=== PATIENT | male | born 1940 | race Caucasian/White ===

== ENCOUNTER 2021-01-06 21:08 | Emergency (ER) | payer MEDICARE ==
[2021-01-06] MEDS ORDERED: DUONEB 0.5-3 MG/3 ml Neb IH ONE ×2 (21:33→22:19)
[2021-01-06] MEDS ORDERED: Sodium Chloride 0.9% 1000 ML 1,000 ML IV SCH (21:45)
[2021-01-06] MEDS ORDERED: Sodium Chloride 0.9% 1000 ML 1,000 ML ONE (21:58)
--- NOTE | 2021-01-06 21:59 | ERPHSYRPT ---
- History of Present Illness Time Seen by Provider: 01/06/21 21:55 Source: patient, family Exam Limitations: no limitations Patient Subjective Stated Complaint: "I had a hard time breathing." Triage Nursing Assessment: Daughter reported that the patient took back to back breathing treatments at home and then started shaking. Daughter also reported that it felt as if his heart was beating too fast. Denied use of home oxygen. Denied recent injuries or sick contacts. This is a pleaslantly confused elderly male. Head atraumatic. pupils 4mm brisk direct and consensual reaction to light. Oral mucosa pink/moist. neck supple non-tender without JVD. No noted bruits/thrills. Symmetrical chest excursion. Heart tones regular/clear S1/S2 without extra sounds. Lung clear to auscultation without adventitious sounds. Peripheral pulses +2 bilateral. No noted dependent edema Physician History: "I had a hard time breathing." Daughter reported that the patient took back to back breathing treatments at home and then started shaking. Daughter also reported that it felt as if his heart was beating too fast. Denied use of home oxygen. Denied recent injuries or sick contacts. Timing/Duration: today Activities at Onset: none Severity of Dyspnea-Max: moderate Severity of Dyspnea-Current: mild Possible Cause: frequent episodes Modifying Factors: Improves With: nothing Associated Symptoms: weakness, No chest pain/discomfort, No fever Allergies/Adverse Reactions: KAYKAY Inhibitors Allergy (Intermediate, Verified 01/06/21 21:19) Home Medications: Amlodipine Besylate 1 tab PO DAILY 01/06/21 [History] Aspirin 81 gm Chew [Baby Aspirin 81 mg Chew] 1 tab PO DAILY 01/06/21 [History] Citalopram Hydrobromide [Citalopram HBr] 1 tab PO DAILY 01/06/21 [History] Citalopram Hydrobromide [Citalopram HBr] 1 tab PO DAILY 01/06/21 [History] Donepezil HCl 10 mg [Aricept 10 MG] 1 tab PO HS 01/06/21 [History] Finasteride 5 mg [Proscar 5 MG] 1 tab PO DAILY 01/06/21 [History] Gabapentin 1 cap PO TID 01/06/21 [History] Metformin HCl 500 mg [Glucophage 500 MG] 1 tab PO BID 01/06/21 [History] Simvastatin 1 tab PO HS 01/06/21 [History] Tamsulosin HCl 1 cap PO DAILY 01/06/21 [History] Tiotropium [place] Inhaler [Spiriva 18 Mcg/Cap Inhaler] 1 puff PO DAILY 01/06/21 [History] Hx Tetanus, Diphtheria Vaccination/Date Given: Yes Hx Influenza Vaccination/Date Given: Yes Travel Risk - International Travel Have you traveled outside of the country in past 3 weeks: No - Coronavirus Screening Are you exhibiting any of the following symptoms?: Yes Symptoms: Shortness of Breath Close contact with a COVID-19 positive Pt in past 14-21 Days: No - Review of Systems Constitutional: Chills, No Fever Eyes: No Symptoms Ears, Nose, & Throat: No Symptoms Respiratory: Dyspnea, Dyspnea on Exertion ([place]), Wheezing, No Cough Cardiac: No Chest Pain, No Edema, No Syncope Abdominal/Gastrointestinal: No Abdominal Pain, No Nausea, No Vomiting, No Diarrhea Genitourinary Symptoms: No Dysuria Musculoskeletal: No Back Pain, No Neck Pain Skin: No Rash Neurological: No Dizziness, No Focal Weakness, No Sensory Changes Psychological: No Symptoms Endocrine: No Symptoms All Other Systems: Reviewed and Negative - Past Medical History Pertinent Past Medical History: Yes Neurological History: Dementia ENT History: No Pertinent History Cardiac History: Aneurysm, Hypertension Respiratory History: COPD Endocrine Medical History: Diabetes Type II Musculoskeletal History: No Pertinent History GI Medical History: Hernia History: No Pertinent History Psycho-Social History: No Pertinent History Male Reproductive Disorders: Prostate Problems Other Medical History: Shingles, postherpetic neuralgia - Past Surgical History Past Surgical History: Yes Gastrointestinal: Hernia Repair - Social History Smoking Status: Former smoker Exposure to second hand smoke: No Drug Use: none Patient Lives Alone: No - Nursing Vital Signs Nursing Vital Signs: Initial Vital Signs Temperature 98 F 01/06/21 21:13 Pulse Rate 94 H 01/06/21 21:13 Respiratory Rate 24 01/06/21 21:13 Blood Pressure 115/58 01/06/21 21:13 O2 Sat by Pulse Oximetry 94 L 01/06/21 21:13 Pain Scale Pain Intensity 0 - Physical Exam General Appearance: no apparent distress, alert Eye Exam: PERRL/EOMI Neck Exam: normal inspection, supple Respiratory Exam: diminished breath sounds, wheezing Cardiovascular/Chest Exam: normal heart sounds, regular rate/rhythm Abdominal/Gastrointestinal Exam: soft, No tenderness, No distention, No mass Extremity Exam: non-tender, normal range of motion, normal inspection, no calf tenderness, no pedal edema Neurologic Exam: alert, oriented x 3, cooperative, el teacher II-XII nml as tested, sensation nml, No motor deficits Skin Exam: normal color, warm, No dry SpO2 Interpretation: borderline oxygenation SpO2: 94 O2 Delivery: Room Air - Course Nursing assessment & vital signs reviewed: Yes - Radiology Exams Chest X-ray Interpretation: Reviewed by me Ordered Tests: Active Orders 24 hr Category Date Time Status Councilperson STAT Care 01/06/21 21:34 Active EKG-ER Only STAT Care 01/06/21 21:33 Active Oxygen-ED Only Nasal Cannula 2 lpm Care 01/06/21 21:33 Active CHEST 1 VIEW (PORTABLE) Stat Exams 01/06/21 21:34 Taken CBC W DIFF Stat Lab 01/06/21 21:50 Completed CMP Stat Lab 01/06/21 21:50 Completed NT PRO BNP Stat Lab 01/06/21 21:50 Completed TROPONIN Stat Lab 01/06/21 21:50 Completed UA W/RFX UR CULTURE Stat Lab 01/06/21 21:33 Ordered Medication Summary Generic Name Dose Route Start Last Admin Trade Name Freq PRN Reason Stop Dose Admin Sodium Chloride 1,000 mls @ 50 mls/hr 01/06/21 21:45 01/06/21 22:03 Sodium Chloride 0.9% 1000 Ml IV 02/05/21 21:44 50 mls/hr .Q20H RAVEN Administration Ceftriaxone Sodium/Dextrose 1 g in 50 mls @ 100 mls/hr 01/06/21 22:19 Rocephin 1 Gm-D5w 50 Ml Bag IV 01/06/21 22:48 STAT STA Azithromycin 500 mg in 250 mls @ 250 mls/hr 01/06/21 22:19 Zithromax 500 Mg/ 250 Ml Nacl Premix IV 01/06/21 23:18 STAT STA Discontinued Medications Generic Name Dose Route Start Last Admin Trade Name Freq PRN Reason Stop Dose Admin Albuterol/Ipratropium 3 ml 01/06/21 21:33 01/06/21 22:23 Duoneb 0.5-3 Mg/3 Ml Neb IH 01/06/21 21:34 3 ml STAT ONE Administration Albuterol/Ipratropium Confirm 01/06/21 22:19 Duoneb 0.5-3 Mg/3 Ml Neb Administered 01/06/21 22:20 Dose 3 ml IH .STK-MED ONE Lab/Rad Data: Laboratory Result Diagrams 01/06/21 21:50 01/06/21 21:50 Laboratory Results 01/06/21 01/06/21 Range/Units 21:50 21:50 WBC 13.6 H (4.0-10.5) K/mm3 RBC 4.09 L (4.1-5.6) M/mm3 Hgb 11.4 L (12.5-18.0) gm/dl Hct 37.2 L (42-50) % MCV 91.0 (78-100) fl MCH 27.9 (26-32) pg MCHC 30.6 L (32-36) g/dl RDW 14.5 H (11.5-14.0) % Plt Count 229 (150-450) K/mm3 MPV 9.5 (7.5-11.0) fl Gran % 82.9 H (36.0-66.0) % Eos # (Auto) 0.04 (0-0.5) Absolute Lymphs (auto) 1.24 (1.0-4.6) Absolute Monos (auto) 1.02 (0.0-1.3) Lymphocytes % 9.1 L (24.0-44.0) % Monocytes % 7.5 (0.0-12.0) % Eosinophils % 0.3 (0.00-5.0) % Basophils % 0.2 (0.0-0.4) % Absolute Granulocytes 11.26 H (1.4-6.9) Basophils # 0.03 (0-0.4) Sodium 137 (137-145) mmol/L Potassium 4.4 (3.5-5.1) mmol/L Chloride 102 (98-107) mmol/L Carbon Dioxide 27 (22-30) mmol/L Anion Gap 13.2 (5-15) MEQ/L BUN 22 H (9-20) mg/dL Creatinine 1.37 H (0.66-1.25) mg/dL Estimated GFR 53.0 ML/MIN Glucose 257 H (74-106) mg/dL Calcium 9.5 (8.4-10.2) mg/dL Total Bilirubin 0.50 (0.2-1.3) mg/dL AST 20 (17-59) U/L ALT 15 (0-50) U/L Alkaline Phosphatase 87 (38-126) U/L Troponin I < 0.012 (0.000-0.034) ng/mL NT-Pro-B Natriuret Pep 228 (0-1800) pg/mL Serum Total Protein 7.2 (6.3-8.2) g/dL Albumin 3.9 (3.5-5.0) g/dL - Progress Progress: improved Air Movement: fair Blood Culture(s) Obtained: No Antibiotics given: Yes Counseled pt/family regarding: lab results, diagnosis, need for follow-up, rad results - Departure Departure Disposition: Home Clinical Impression: Pneumonia of right lower lobe due to group B Streptococcus Condition: Stable Critical Care Time: Yes Critical Care Time(excluding separately billable procedures): Critical 30-74 mins Instructions: Pneumonia, Adult (DC) Additional Instructions: Discharge/Care Plan STEPHEN BOO was seen on 01/06/21 in the Emergency Room. The patient was counseled regarding Diagnosis,Lab results, Imaging studies, need for follow up and when to return to the Emergency Room. Prescriptions given: Discharge Note I have spoken with the patient and/or caregivers. I have explained the patient's condition, diagnosis and treatment plan based on the information available to me at this time. I have answered the patient's and/or caregiver's questions and addressed any concerns. The patient and/or caregivers have as good understanding of the patient's diagnosis, condition and treatment plan as can be expected at this point. The vital signs have been stable. The patient's condition is stable and appropriate for discharge from the emergency department. The patient will pursue further outpatient evaluation with the primary care physician or other designated or consulting physician as outlined in the discharge instructions. The patient and/or caregivers are agreeable to this plan of care and follow-up instructions have been explained in detail. The patient and/or caregivers have received these instruction. The patient/and or caregivers are aware that any significant change in condition or worsening of symptoms should prompt an immediate return to this or the closest emergency department or call 911. STEPHEN BOO was seen on 01/06/21 n the Emergency Room. At that time you were treated for an emergent condition, during your visit Laboratory, Radiology and/or other procedures may have been ordered. It is very important that you follow-up with your Primary Care Physician NO FAMILY DOCTOR within the next 24- 48 hours to review your Emergency Room visit and the final results of testing that was ordered. Some test results such as Urine Cultures, Blood Cultures, and other cultures if ordered will not be finalized for 24-48 hours. If you do not have a Primary Care Provider please call the medical records department at [phone] ext [phone] to obtain a copy of your results or you may sign into our patient portal to obtain these results by visiting us @ [email or web address] and completing the following steps: 1. Click on the Patient Portal link 2. Click the Patient Self Enrollment Link to complete the enrollment form and entering your 3. Once the enrollment form is completed you will receive an email with a temporary ID and password at the email address you provided. 4. Next choose a user name and password. Your user name must be at least 4 characters long and your password must be at least 4 characters long. 5. Choose a security question from the list and provide your answer to the question. If you already have signed into the Health Portal you may access your Health Care Information 16/06 by the following steps: 1. Login to our website @ [email or web address] 2. Enter your original user name and password. FAQS The [facility] Health Portal is an online tool that contains your Lab Results, Radiology Reports, Visit History, Discharge Instructions and Health Summary Lab and Radiology Results will not be available for 72 hours on the portal. The Portal is a secure site, passwords are encryted and URLs are re-written so they cannot be copied and pasted. You and authorized family members are the only ones who can access your Portal. Also there is a timeout feature that protects your information if you leave the Portal page open. If you have technical difficulty please use the Contact Us link on the page this will allow you to submit any questions you have regarding the Portal or you may contact the Medical Record Department at [phone] ext [phone]. Prescriptions: Cephalexin Mh 500 mg [Keflex 500 mg] 500 mg PO Q6H #40 capsule
[2021-01-06 22:00] LABS: Absolute Neutrophil Ct (ANC) 11.26 (1.4-6.9); BASOPHIL % 0.2 % (0.0-0.4); Basophil (Absolute #) 0.03 (0-0.4); Eosinophil % 0.3 % (0.00-5.0); Eosinophil (Absolute #) 0.04 (0-0.5); Hematocrit 37.2 % (42-50); Hemoglobin 11.4 gm/dl (12.5-18.0); Lymphocyte (Absolute #) 1.24 (1.0-4.6); Lymphocytes % 9.1 % (24.0-44.0); Mean Corpuscular Hemoglobin 27.9 pg (26-32); Mean Corpuscular Hgb Concent. 30.6 g/dl (32-36); Mean Platelet Volume 9.5 fl (7.5-11.0); Monocyte (Absolute #) 1.02 (0.0-1.3); Monocytes % 7.5 % (0.0-12.0); Neutrophil % 82.9 % (36.0-66.0); Platelet Count 229 K/mm3 (150-450); Red Blood Count 4.09 M/mm3 (4.1-5.6); Red Cell Distribution Width 14.5 % (11.5-14.0); White Blood Count 13.6 K/mm3 (4.0-10.5)
[2021-01-06] MEDS ORDERED: ROCEPHIN 1 Gm-D5w 50 ml Bag** 1 G/50 ML IVPB IV STA (22:19)
[2021-01-06] MEDS ORDERED: Zithromax 500 MG/ 250 ML NaCl Premix 500 MG/250 ML IVPB IV STA (22:19)
[2021-01-06 22:23] LABS: ALBUMIN 3.9 g/dL (3.5-5.0); ALKALINE PHOSPHATASE 87 U/L (38-126); ANION GAP 13.2 MEQ/L (5-15); BLOOD UREA NITROGEN 22 mg/dL (9-20); CHLORIDE 102 mmol/L (98-107); Calcium 9.5 mg/dL (8.4-10.2); Carbon Dioxide 27 mmol/L (22-30); Creatinine 1 1.37 mg/dL (0.66-1.25); Glucose 257 mg/dL (74-106); NT PRO BNP 228 pg/mL (0-1800); Potassium 4.4 mmol/L (3.5-5.1); SGOT/AST 20 U/L (17-59); SGPT/ALT 15 U/L (0-50); SODIUM 137 mmol/L (137-145); TROPONIN < 0.012 ng/mL (0.000-0.034); Total Protein 7.2 g/dL (6.3-8.2)
[2021-01-06] MEDS ORDERED: ROCEPHIN 1 Gm-D5w 50 ml Bag** 1 G/50 ML IVPB IV ONE (22:26)
[2021-01-06] MEDS ORDERED: Zithromax 500 MG/ 250 ML NaCl Premix 500 MG/250 ML IVPB IV ONE (22:54)
[2021-01-06 23:14] VITALS: BP 117/56
[2021-01-07 00:09] VITALS: PULSE 87; O2SAT 92
[2021-01-07 00:30] LABS: Appearance SLIGHTLY CLOUDY (CLEAR); Bilirubin NEGATIVE (NEGATIVE); Blood NEGATIVE Ery/ul (0-5); Glucose NEGATIVE (NEGATIVE); Ketones NEGATIVE (NEGATIVE); Leukocyte Esterase NEGATIVE (NEGATIVE); Mucus SLIGHT /HPF (NEGATIVE); Nitrite NEGATIVE (NEGATIVE); Protein,Urine Dip NEGATIVE (Negative); Specific Gravity 1.023 (1.005-1.025); Urobilinogen 2 mg/dL (0-1)
--- NOTE | 2021-01-07 08:03 | XRAY ---
Indication: Short of breath. Comparison: None Portable chest does not include left costophrenic angle. Lungs hyperinflated with minimal scattered fibrosis/scarring, left base discoid atelectasis, and tiny right base calcified granuloma. No focal infiltrate, consolidation, or large effusion. Heart and mediastinal structures within normal limits. Bony thorax intact with mild osteopenia and degenerative changes. Impression: Nonacute limited chest with chronic features.
== END 2021-01-07 00:16 | disposition home or self-care (01) ==
LOC: ED 21:08
DX: R06.02 Shortness of breath (principal); J15.3 Pneumonia due to streptococcus, group B; R06.00 Dyspnea, unspecified; R06.2 Wheezing; R53.1 Weakness; I10 Essential (primary) hypertension; E11.9 Type 2 diabetes mellitus without complications; Z79.899 Other long term (current) drug therapy
CPT/HCPCS: 36415; 71045; 80053; 81001; 83880; 84484; 85025; 93005; 93041; 94150; 94640; 96365; 96366; 96367; 99284; 99291; J0456; J0696; A9270-GY

== ENCOUNTER 2021-07-12 20:00 | Inpatient (IN) | payer MEDICARE ==
[2021-07-12] MEDS ORDERED: DUONEB 0.5-3 MG/3 ml Neb IH ONE (21:56)
[2021-07-13] MEDS ORDERED: Sodium Chloride 0.9% 10 ML FLUSH Syringe IV PRN (01:00)
[2021-07-13] MEDS ORDERED: ROCEPHIN 1 Gm-D5w 50 ml Bag** 1 G/50 ML IVPB IV ONE (03:00)
[2021-07-13] MEDS ORDERED: DUONEB 0.5-3 MG/3 ml Neb IH PRN (03:00)
[2021-07-13] MEDS ORDERED: solu-MEDROL 125 MG, Sterile H2O 10 ml 2 ML IV ONE ×2 (03:00)
[2021-07-13] MEDS ORDERED: solu-MEDROL ONE (03:04)
[2021-07-13] MEDS ORDERED: Spiriva 18 Mcg/Cap Inhaler IH ONE (03:33)
[2021-07-13] MEDS ORDERED: TYLENOL 325 MG PO PRN (05:13)
[2021-07-13] MEDS ORDERED: DUONEB 0.5-3 MG/3 ml Neb IH ONE (06:44)
[2021-07-13 07:18] LABS: BLOOD UREA NITROGEN 15 mg/dL (9-20); CHLORIDE 103 mmol/L (98-107); Carbon Dioxide 29 mmol/L (22-30); Creatinine 1 0.98 mg/dL (0.66-1.25); EST GLOMERULAR FILTRATION RATE > 60.0 ML/MIN; Glucose 164 mg/dL (74-106); Hematocrit 37.7 % (42-50); Hemoglobin 11.9 gm/dl (12.5-18.0); Mean Cell Volume 89.8 fl (78-100); Mean Corpuscular Hemoglobin 28.3 pg (26-32); Mean Corpuscular Hgb Concent. 31.6 g/dl (32-36); Mean Platelet Volume 10.4 fl (7.5-11.0); Platelet Count 230 K/mm3 (150-450); Potassium 5.1 mmol/L (3.5-5.1); Red Cell Distribution Width 13.8 % (11.5-14.0); SODIUM 137 mmol/L (137-145); White Blood Count 11.8 K/mm3 (4.0-10.5)
[2021-07-13 07:19] LABS: ALBUMIN 3.7 g/dL (3.5-5.0); ALKALINE PHOSPHATASE 74 U/L (38-126); Calcium 9.4 mg/dL (8.4-10.2); MAGNESIUM 1.8 mg/dL (1.6-2.3); NT PRO BNP 374 pg/mL (0-1800); SGOT/AST 31 U/L (17-59); SGPT/ALT 12 U/L (0-50); TROPONIN 0.017 ng/mL (0.000-0.034)
[2021-07-13 07:20] LABS: ANION GAP 10.1 MEQ/L (5-15)
[2021-07-13] MEDS: Sodium Chloride 0.9% 10 ML FLUSH Syringe IV SCH ×3 (09:34→23:47)
[2021-07-13] MEDS ORDERED: PROVENTIL 2.5 MG/3 ML NEB IH PRN (09:52)
--- NOTE | 2021-07-13 09:57 | XRAY ---
Indication: Weakness and fatigue. COPD. Comparison: January 06, 2021. Portable chest again demonstrates COPD, CIPD, minimal left base fibrosis/scarring, and a few calcified granulomas. No focal infiltrate, consolidation, or large effusion. Heart not enlarged. Bony thorax intact again with mild osteopenia and degenerative changes. Impression: Continued nonacute chest with chronic features.
[2021-07-13] MEDS ORDERED: solu-MEDROL 40 MG IV SCH (10:00)
[2021-07-13] MEDS ORDERED: Spiriva 18 Mcg/Cap Inhaler IH SCH (10:00)
[2021-07-13] MEDS ORDERED: MOTRIN 200 MG PO PRN (10:18)
[2021-07-13] MEDS ORDERED: Sterile H2O 10 ml IJ ONE (10:45)
[2021-07-13] MEDS: Flomax 0.4 MG PO SCH (10:52)
[2021-07-13] MEDS: ceLEXa 20 MG PO SCH (10:52)
[2021-07-13] MEDS: Glucophage 500 MG PO SCH ×2 (10:52→17:33)
[2021-07-13] MEDS: NEURONTIN 300 MG PO SCH ×3 (10:52→23:46)
[2021-07-13] MEDS: VITAMIN D PO SCH (10:52)
[2021-07-13] MEDS: ECOTRIN 81 MG PO SCH (10:52)
[2021-07-13] MEDS: NORVASC 5 MG PO SCH (10:52)
[2021-07-13] MEDS: HUMULIN R SQ PRN ×3 (10:53→17:30)
[2021-07-13] MEDS: Zithromax 500 MG/ 250 ML NaCl Premix 500 MG/250 ML IVPB IV SCH (10:53)
--- NOTE | 2021-07-13 11:33 | XRAY ---
Indication: Weakness. COPD exacerbation. Multiple contiguous axial images obtained through the head without contrast. Comparison: None Age-appropriate global atrophy and moderate periventricular degenerative micro-ischemia bilaterally. No acute intracranial hemorrhage, abnormal extra-axial fluid collection, or mass effect. Fourth ventricle is midline without hydrocephalus. Bony calvarium intact. Visualized paranasal sinuses and mastoid air cells are clear. Impression: Nonacute senile brain.
[2021-07-13] MEDS: Proscar 5 MG PO SCH (12:32)
[2021-07-13] MEDS: DUONEB 0.5-3 MG/3 ml Neb IH SCH ×3 (13:41→23:18)
[2021-07-13] MEDS: solu-MEDROL 60 MG, Sterile H2O 10 ml 2 ML IV SCH ×4 (17:31→23:45)
[2021-07-13] MEDS ORDERED: SODIUM CHLORIDE 0.9% IV SCH (22:00)
[2021-07-13] MEDS ORDERED: ROCEPHIN IV SCH (22:00)
[2021-07-13] MEDS ORDERED: NON-FORMULARY ITEM (Simvastatin [Simvastatin] 5 MG) PO SCH (22:00)
[2021-07-13] MEDS: ROCEPHIN 1 Gm-D5w 50 ml Bag** 1 G/50 ML IVPB IV SCH (23:45)
[2021-07-13] MEDS: Zocor 10MG PO SCH (23:46)
[2021-07-13] MEDS: Aricept 10 MG PO SCH (23:47)
[2021-07-13] MEDS: Lantus Insulin SQ SCH (23:47)
[2021-07-14 03:59] LABS: Appearance CLOUDY (CLEAR); Bacteria RARE /HPF (NEGATIVE); Bilirubin NEGATIVE (NEGATIVE); Blood LARGE Ery/ul (0-5); Epithelial Cells FEW /HPF (FEW); Glucose >=500 mg/dL (NEGATIVE); Ketones TRACE (NEGATIVE); Leukocyte Esterase NEGATIVE (NEGATIVE); Mucus SLIGHT /HPF (NEGATIVE); Nitrite NEGATIVE (NEGATIVE); Protein,Urine Dip 100 (Negative); Specific Gravity 1.013 (1.005-1.025); Urobilinogen NEGATIVE mg/dL (0-1)
[2021-07-14 04:00] LABS: RBC >101 /HPF (0-2)
[2021-07-14] MEDS: solu-MEDROL 60 MG, Sterile H2O 10 ml 2 ML IV SCH ×4 (05:32→11:34)
[2021-07-14] MEDS: Sodium Chloride 0.9% 10 ML FLUSH Syringe IV SCH ×2 (05:33→14:36)
[2021-07-14 06:07] LABS: Hematocrit 34.5 % (42-50); Hemoglobin 11.4 gm/dl (12.5-18.0); Mean Cell Volume 88.5 fl (78-100); Mean Corpuscular Hemoglobin 29.2 pg (26-32); Platelet Count 231 K/mm3 (150-450); Red Cell Distribution Width 14.1 % (11.5-14.0); White Blood Count 20.3 K/mm3 (4.0-10.5)
[2021-07-14 06:26] LABS: ANION GAP 14.2 MEQ/L (5-15); Calcium 9.5 mg/dL (8.4-10.2); Creatinine 1 1.34 mg/dL (0.66-1.25); EST GLOMERULAR FILTRATION RATE 54.4 ML/MIN; Potassium 4.8 mmol/L (3.5-5.1)
[2021-07-14] MEDS: DUONEB 0.5-3 MG/3 ml Neb IH SCH ×3 (06:55→19:45)
--- NOTE | 2021-07-14 07:43 | XRAY ---
Indication: COPD exacerbation. Comparison: July 12, 2021. Portable chest unchanged again demonstrating COPD, chronic lung markings, minimal left base fibrosis/scarring, and a few tiny calcified granulomas. Heart not enlarged. No new/acute abnormalities.
[2021-07-14] MEDS: Glucophage 500 MG PO SCH ×2 (09:02→17:38)
[2021-07-14] MEDS: HUMULIN R SQ PRN (09:08)
[2021-07-14] MEDS ORDERED: Flomax 0.4 MG PO SCH (10:00)
[2021-07-14] MEDS ORDERED: NON-FORMULARY ITEM (Cholecalciferol (Vitamin D3) [Vitamin D3] 1,000 UNIT) PO SCH (10:00)
[2021-07-14] MEDS ORDERED: BABY ASPIRIN 81 MG CHEW PO SCH (10:00)
[2021-07-14] MEDS ORDERED: AMLODIPINE BESYLATE PO SCH (10:00)
[2021-07-14] MEDS ORDERED: NON-FORMULARY ITEM (Citalopram Hydrobromide [Celexa] 10 MG) PO SCH (10:00)
[2021-07-14] MEDS ORDERED: Haldol 5 MG IV PRN (11:30)
[2021-07-14] MEDS: ceLEXa 20 MG PO SCH (11:33)
[2021-07-14] MEDS: Flomax 0.4 MG PO SCH (11:33)
[2021-07-14] MEDS: VITAMIN D PO SCH (11:33)
[2021-07-14] MEDS: ECOTRIN 81 MG PO SCH (11:33)
[2021-07-14] MEDS: NEURONTIN 300 MG PO SCH ×3 (11:34→19:59)
[2021-07-14] MEDS: NORVASC 5 MG PO SCH (11:34)
[2021-07-14] MEDS ORDERED: HALDOL 1 MG PO PRN (11:34)
[2021-07-14] MEDS: Zithromax 500 MG/ 250 ML NaCl Premix 500 MG/250 ML IVPB IV SCH (11:34)
[2021-07-14] MEDS: Proscar 5 MG PO SCH (11:35)
[2021-07-14] MEDS ORDERED: HUMALOG IV ONE (12:30)
[2021-07-14] MEDS ORDERED: Lantus Insulin SQ ONE (12:32)
[2021-07-14] MEDS: solu-MEDROL 40 MG IV SCH ×2 (14:35→19:59)
[2021-07-14] MEDS ORDERED: solu-MEDROL 40 MG, Sterile H2O 10 ml 2 ML IV SCH ×2 (15:00)
[2021-07-14] MEDS: HUMALOG SQ PRN ×3 (15:15→19:57)
[2021-07-14] MEDS: Zocor 10MG PO SCH (19:58)
[2021-07-14] MEDS: ROCEPHIN 1 Gm-D5w 50 ml Bag** 1 G/50 ML IVPB IV SCH (19:58)
[2021-07-14] MEDS: Aricept 10 MG PO SCH (19:59)
[2021-07-14] MEDS: Lantus Insulin SQ SCH (19:59)
[2021-07-14] MEDS ORDERED: D50W 50 ml Abboject IV ONE (23:18)
[2021-07-14] MEDS ORDERED: D50W 50ML Vial IV ONE (23:21)
[2021-07-15] MEDS: DUONEB 0.5-3 MG/3 ml Neb IH SCH ×4 (01:08→19:04)
[2021-07-15] MEDS ORDERED: Sterile H2O 10 ml IJ ONE (05:44)
[2021-07-15] MEDS: solu-MEDROL 40 MG IV SCH (05:46)
[2021-07-15 06:07] LABS: Hematocrit 34.8 % (42-50); Mean Cell Volume 90.4 fl (78-100); Mean Corpuscular Hemoglobin 28.6 pg (26-32); Mean Corpuscular Hgb Concent. 31.6 g/dl (32-36); Mean Platelet Volume 10.2 fl (7.5-11.0); Platelet Count 226 K/mm3 (150-450); Red Blood Count 3.85 M/mm3 (4.1-5.6); Red Cell Distribution Width 14.3 % (11.5-14.0); White Blood Count 21.4 K/mm3 (4.0-10.5)
[2021-07-15 06:22] LABS: ALBUMIN 3.3 g/dL (3.5-5.0); ANION GAP 13.2 MEQ/L (5-15); BILIRUBIN,TOTAL 0.3 mg/dL (0.2-1.3); Calcium 9.3 mg/dL (8.4-10.2); Creatinine 1 1.28 mg/dL (0.66-1.25); EST GLOMERULAR FILTRATION RATE 57.3 ML/MIN; Potassium 4.6 mmol/L (3.5-5.1); Total Protein 6.2 g/dL (6.3-8.2)
[2021-07-15] MEDS: Glucophage 500 MG PO SCH ×2 (07:37→16:01)
[2021-07-15] MEDS: HUMALOG SQ PRN ×2 (08:38→13:36)
[2021-07-15] MEDS: ceLEXa 20 MG PO SCH (09:11)
[2021-07-15] MEDS: ECOTRIN 81 MG PO SCH (09:13)
[2021-07-15] MEDS: NEURONTIN 300 MG PO SCH ×3 (09:13→21:36)
[2021-07-15] MEDS: Flomax 0.4 MG PO SCH (09:13)
[2021-07-15] MEDS: VITAMIN D PO SCH (09:15)
[2021-07-15] MEDS: NORVASC 5 MG PO SCH (09:15)
[2021-07-15] MEDS: Proscar 5 MG PO SCH (09:15)
[2021-07-15] MEDS: Zithromax 500 MG/ 250 ML NaCl Premix 500 MG/250 ML IVPB IV SCH (09:16)
[2021-07-15] MEDS ORDERED: HALDOL 1 MG PO ONE (09:29)
[2021-07-15] MEDS ORDERED: HUMALOG SQ PRN (09:34)
[2021-07-15 10:16] LABS: Lymphocytes 4 % (24-44); Neutrophils 96 % (36.-66.); Platelet Estimate NORMAL (NORMAL); Total Cells Counted 100; Toxic Granulation 2+
[2021-07-15] MEDS: DELTASONE 10 MG PO SCH (10:20)
[2021-07-15] MEDS: Sodium Chloride 0.9% 10 ML FLUSH Syringe IV SCH ×2 (14:46→21:35)
[2021-07-15] MEDS: Aricept 10 MG PO SCH (21:35)
[2021-07-15] MEDS: Zocor 10MG PO SCH (21:35)
[2021-07-15] MEDS: ROCEPHIN 1 Gm-D5w 50 ml Bag** 1 G/50 ML IVPB IV SCH (21:35)
[2021-07-16] MEDS: DUONEB 0.5-3 MG/3 ml Neb IH SCH ×4 (00:32→19:17)
[2021-07-16 05:28] LABS: Hematocrit 32.6 % (42-50); Hemoglobin 10.3 gm/dl (12.5-18.0); Mean Cell Volume 90.6 fl (78-100); Mean Corpuscular Hemoglobin 28.6 pg (26-32); Mean Corpuscular Hgb Concent. 31.6 g/dl (32-36); Mean Platelet Volume 9.9 fl (7.5-11.0); Platelet Count 226 K/mm3 (150-450); Red Cell Distribution Width 14.3 % (11.5-14.0)
[2021-07-16 05:55] LABS: ALBUMIN 3.1 g/dL (3.5-5.0); ALKALINE PHOSPHATASE 61 U/L (38-126); ANION GAP 11.4 MEQ/L (5-15); BLOOD UREA NITROGEN 37 mg/dL (9-20); CHLORIDE 104 mmol/L (98-107); Carbon Dioxide 26 mmol/L (22-30); Creatinine 1 1.14 mg/dL (0.66-1.25); EST GLOMERULAR FILTRATION RATE > 60.0 ML/MIN; Glucose 134 mg/dL (74-106); PROCALCITONIN 0.088 ng/mL (0.030-0.080); Potassium 4.2 mmol/L (3.5-5.1); SGOT/AST 27 U/L (17-59); SGPT/ALT 17 U/L (0-50); SODIUM 137 mmol/L (137-145); Total Protein 5.9 g/dL (6.3-8.2)
[2021-07-16 07:19] LABS: Lymphocytes 12 % (24-44); Neutrophils 88 % (36.-66.); Platelet Estimate NORMAL (NORMAL); Total Cells Counted 100; Toxic Granulation 2+
[2021-07-16] MEDS: ECOTRIN 81 MG PO SCH (09:10)
[2021-07-16] MEDS: VITAMIN D PO SCH (09:10)
[2021-07-16] MEDS: DELTASONE 10 MG PO SCH (09:10)
[2021-07-16] MEDS: ceLEXa 20 MG PO SCH (09:10)
[2021-07-16] MEDS: Flomax 0.4 MG PO SCH (09:10)
[2021-07-16] MEDS: Glucophage 500 MG PO SCH ×2 (09:10→16:40)
[2021-07-16] MEDS: Sodium Chloride 0.9% 10 ML FLUSH Syringe IV SCH ×3 (09:11→23:01)
[2021-07-16] MEDS: Zithromax 500 MG/ 250 ML NaCl Premix 500 MG/250 ML IVPB IV SCH (09:11)
[2021-07-16] MEDS: NEURONTIN 300 MG PO SCH ×3 (09:11→23:00)
[2021-07-16] MEDS: Proscar 5 MG PO SCH (09:11)
[2021-07-16] MEDS: NORVASC 5 MG PO SCH (09:11)
[2021-07-16] MEDS: HUMALOG SQ PRN (18:14)
[2021-07-16] MEDS: Zocor 10MG PO SCH (23:00)
[2021-07-16] MEDS: Aricept 10 MG PO SCH (23:00)
[2021-07-16] MEDS: ROCEPHIN 1 Gm-D5w 50 ml Bag** 1 G/50 ML IVPB IV SCH (23:15)
[2021-07-17] MEDS: DUONEB 0.5-3 MG/3 ml Neb IH SCH ×4 (01:15→19:18)
[2021-07-17 05:20] LABS: Hemoglobin 11.1 gm/dl (12.5-18.0); Mean Corpuscular Hemoglobin 28.5 pg (26-32); Mean Corpuscular Hgb Concent. 31.7 g/dl (32-36); Mean Platelet Volume 9.7 fl (7.5-11.0); Platelet Count 219 K/mm3 (150-450); Red Blood Count 3.89 M/mm3 (4.1-5.6); Red Cell Distribution Width 13.9 % (11.5-14.0); White Blood Count 10.3 K/mm3 (4.0-10.5)
[2021-07-17 06:19] LABS: ANION GAP 11.3 MEQ/L (5-15); BLOOD UREA NITROGEN 25 mg/dL (9-20); CHLORIDE 103 mmol/L (98-107); Calcium 9.1 mg/dL (8.4-10.2); Carbon Dioxide 29 mmol/L (22-30); Creatinine 1 1.01 mg/dL (0.66-1.25); EST GLOMERULAR FILTRATION RATE > 60.0 ML/MIN; Glucose 148 mg/dL (74-106); SODIUM 139 mmol/L (137-145)
[2021-07-17] MEDS: Sodium Chloride 0.9% 10 ML FLUSH Syringe IV SCH ×4 (08:56→22:31)
[2021-07-17] MEDS: Glucophage 500 MG PO SCH ×2 (08:57→17:12)
--- NOTE | 2021-07-17 09:06 | XRAY ---
Indication: Pneumonia. Comparison: July 14, 2021. Portable chest does not include right costophrenic angle. Grossly stable COPD, left base fibrosis/scarring, and a few scattered calcified granulomas. Heart not enlarged. No new/acute abnormalities.
[2021-07-17] MEDS: NORVASC 5 MG PO SCH (11:33)
[2021-07-17] MEDS: Flomax 0.4 MG PO SCH (11:34)
[2021-07-17] MEDS: ECOTRIN 81 MG PO SCH (11:34)
[2021-07-17] MEDS: VITAMIN D PO SCH (11:34)
[2021-07-17] MEDS: ceLEXa 20 MG PO SCH (11:34)
[2021-07-17] MEDS: DELTASONE 10 MG PO SCH (11:35)
[2021-07-17] MEDS: NEURONTIN 300 MG PO SCH ×3 (11:35→21:06)
[2021-07-17] MEDS: Proscar 5 MG PO SCH (11:36)
--- NOTE | 2021-07-17 11:51 | XRAY ---
Indication: Dysphasia. Modified barium swallow study performed by the Department of speech therapy with fluoroscopic assistance provided. Patient ingested multiple consistencies of liquids and solids. Full report and recommendations will be reported separately. Approximately 2 minutes 47 seconds fluoroscopy used.
[2021-07-17] MEDS: Zithromax 500 MG/ 250 ML NaCl Premix 500 MG/250 ML IVPB IV SCH (11:54)
[2021-07-17] MEDS: HUMALOG SQ PRN ×2 (12:25→21:29)
[2021-07-17] MEDS: Zocor 10MG PO SCH (21:06)
[2021-07-17] MEDS: Aricept 10 MG PO SCH (21:06)
[2021-07-17] MEDS: ROCEPHIN 1 Gm-D5w 50 ml Bag** 1 G/50 ML IVPB IV SCH (21:06)
[2021-07-18] MEDS: DUONEB 0.5-3 MG/3 ml Neb IH SCH ×4 (02:00→17:48)
[2021-07-18] MEDS: Flomax 0.4 MG PO SCH (09:28)
[2021-07-18] MEDS: ECOTRIN 81 MG PO SCH (09:28)
[2021-07-18] MEDS: ceLEXa 20 MG PO SCH (09:28)
[2021-07-18] MEDS: VITAMIN D PO SCH (09:28)
[2021-07-18] MEDS: Glucophage 500 MG PO SCH ×2 (09:28→17:29)
[2021-07-18] MEDS: NORVASC 5 MG PO SCH (09:28)
[2021-07-18] MEDS: NEURONTIN 300 MG PO SCH ×3 (09:28→21:31)
[2021-07-18] MEDS: Proscar 5 MG PO SCH (09:29)
[2021-07-18] MEDS: Zithromax 500 MG/ 250 ML NaCl Premix 500 MG/250 ML IVPB IV SCH (09:29)
[2021-07-18] MEDS: DELTASONE 10 MG PO SCH (09:29)
[2021-07-18] MEDS: Sodium Chloride 0.9% 10 ML FLUSH Syringe IV SCH ×3 (09:30→21:31)
[2021-07-18] MEDS: HUMALOG SQ PRN ×3 (12:29→21:32)
[2021-07-18] MEDS: ROCEPHIN 1 Gm-D5w 50 ml Bag** 1 G/50 ML IVPB IV SCH (21:31)
[2021-07-18] MEDS: Aricept 10 MG PO SCH (21:31)
[2021-07-18] MEDS: Zocor 10MG PO SCH (21:32)
[2021-07-19] MEDS: DUONEB 0.5-3 MG/3 ml Neb IH SCH ×3 (01:17→12:38)
[2021-07-19 04:51] LABS: Hematocrit 35.7 % (42-50); Hemoglobin 11.3 gm/dl (12.5-18.0); Mean Cell Volume 91.3 fl (78-100); Mean Corpuscular Hemoglobin 28.9 pg (26-32); Mean Corpuscular Hgb Concent. 31.7 g/dl (32-36); Mean Platelet Volume 9.7 fl (7.5-11.0); Platelet Count 218 K/mm3 (150-450); Red Blood Count 3.91 M/mm3 (4.1-5.6); Red Cell Distribution Width 14.1 % (11.5-14.0); White Blood Count 11.4 K/mm3 (4.0-10.5)
[2021-07-19 05:16] LABS: BLOOD UREA NITROGEN 24 mg/dL (9-20); CHLORIDE 104 mmol/L (98-107); Calcium 9.1 mg/dL (8.4-10.2); Carbon Dioxide 30 mmol/L (22-30); Creatinine 1 1.13 mg/dL (0.66-1.25); EST GLOMERULAR FILTRATION RATE > 60.0 ML/MIN; Glucose 165 mg/dL (74-106); SODIUM 139 mmol/L (137-145)
[2021-07-19] MEDS: HUMALOG SQ PRN ×2 (07:37→11:47)
[2021-07-19] MEDS: Glucophage 500 MG PO SCH (07:40)
--- NOTE | 2021-07-19 08:32 | XRAY ---
Indication: Pneumonia. Comparison: July 17, 2021. Portable chest unchanged again demonstrating COPD, left base fibrosis/scarring, and a few tiny calcified granulomas. Heart not enlarged. No new/acute cardiopulmonary abnormalities.
[2021-07-19] MEDS: VITAMIN D PO SCH (09:31)
[2021-07-19] MEDS: NEURONTIN 300 MG PO SCH (09:31)
[2021-07-19] MEDS: ceLEXa 20 MG PO SCH (09:31)
[2021-07-19] MEDS: Flomax 0.4 MG PO SCH (09:31)
[2021-07-19] MEDS: NORVASC 5 MG PO SCH (09:31)
[2021-07-19] MEDS: DELTASONE 10 MG PO SCH (09:32)
[2021-07-19] MEDS: Proscar 5 MG PO SCH (09:32)
[2021-07-19] MEDS: ECOTRIN 81 MG PO SCH (09:32)
[2021-07-19 12:08] VITALS: BP 109/55
[2021-07-19 12:42] VITALS: PULSE 81; O2SAT 94
== END 2021-07-19 13:00 | disposition home health service (06) | DRG 192 ==
LOC: ED 20:00 → MED SURG 07-13 02:35 → OBSVTOIN 07-14 09:51
PROVIDERS: ADMIT Family Medicine; ATTEND Family Medicine
DX: J44.1 Chronic obstructive pulmonary disease with (acute) exacerbation (principal); R29.6 Repeated falls; Z20.822 Contact with and (suspected) exposure to COVID-19; R53.1 Weakness; E11.9 Type 2 diabetes mellitus without complications; Z79.899 Other long term (current) drug therapy
CPT/HCPCS: 36415; 70450; 71045; 74230; 80048; 80053; 81001; 82947; 83036; 83735; 83880; 84145; 84484; 85025; 85027; 87086; 92611; 94640; 94760; 97110; 97161; 97530; 99285; G0378; U0003; J0456; J0696; J1630; J1815; J1817; J2920; J2930; A9270-GY

== ENCOUNTER 2021-10-04 18:19 | Emergency (ER) | payer MEDICARE ==
[2021-10-04 19:04] LABS: Absolute Neutrophil Ct (ANC) 5.19 (1.4-6.9); BASOPHIL % 0.3 % (0.0-0.4); Basophil (Absolute #) 0.03 (0-0.4); Eosinophil (Absolute #) 0.45 (0-0.5); Hematocrit 38.3 % (42-50); Hemoglobin 11.8 gm/dl (12.5-18.0); Lymphocyte (Absolute #) 2.38 (1.0-4.6); Lymphocytes % 26.6 % (24.0-44.0); Mean Cell Volume 93.6 fl (78-100); Mean Corpuscular Hemoglobin 28.9 pg (26-32); Mean Corpuscular Hgb Concent. 30.8 g/dl (32-36); Mean Platelet Volume 10.1 fl (7.5-11.0); Monocytes % 10.1 % (0.0-12.0); Platelet Count 232 K/mm3 (150-450); Red Blood Count 4.09 M/mm3 (4.1-5.6); Red Cell Distribution Width 14.5 % (11.5-14.0)
--- NOTE | 2021-10-04 19:10 | ERPHSYRPT ---
- History of Present Illness Time Seen by Provider: 10/04/21 18:25 Source: patient, family, EMS Exam Limitations: clinical condition Patient Subjective Stated Complaint: Home health Rn states "he was recently placed on lasix and potassium. he has recently had pneumonia and the family thinks he might still have it. He is coarse respirations and he has +2 pitting edema bilat lower extremities as well as blue dominguez orbital edema. I called Dr. Plummer office and they finally got back to me and said he should go to the emergency room.". Pt states "I am a little short of breath, but I do not hurt." Triage Nursing Assessment: PT presented alert and oriented to his norm. Pt on duo neb tx upon arrival with a 20 g iv in pt left ac. PT resting comfortably on the cot in no apparent respiratory distress. Pt has slight edema noted to bilat lower extremities. Physician History: This is an 81-year-old white male patient of Dr. Plummer who has a history of knee, hypertension, dementia and diabetes. He was diagnosed with pneumonia in June 2021. He has had increasing cough symptoms that been productive described as yellow-green, over the last week. Home health evaluated him today and concerned that there was increase swelling of his feet and ankles bilaterally. He also has some shortness of breath. Patient was brought in by EMS service. He was given Solu-Medrol intravenously and a DuoNeb. This substantially improved his symptoms and his oxygen saturations level improved as well. He states that he is breathing better upon arrival into the emergency department. Timing/Duration: week(s) (1) Allergies/Adverse Reactions: KAYKAY Inhibitors Allergy (Intermediate, Verified 01/06/21 21:19) Home Medications: Amlodipine Besylate 10 tab PO DAILY 01/06/21 [History] Aspirin 81 gm Chew [Baby Aspirin 81 mg Chew] 81 mg PO DAILY 01/06/21 [History] Donepezil HCl 10 mg [Aricept 10 MG] 10 mg PO HS 01/06/21 [History] Finasteride 5 mg [Proscar 5 MG] 5 mg PO DAILY 01/06/21 [History] Gabapentin 300 mg PO TID 01/06/21 [History] Metformin HCl 500 mg [Glucophage 500 MG] 500 mg PO BIDWMEALS 01/06/21 [History] Simvastatin 5 mg PO HS 01/06/21 [History] Tamsulosin HCl 0.4 mg PO DAILY 01/06/21 [History] Tiotropium Kendall Inhaler [Spiriva 18 Mcg/Cap Inhaler] 1 puff PO DAILY 01/06/21 [History] Acetaminophen 325 mg [Tylenol 325 mg] 325 mg PO Q4HPRN PRN 07/13/21 [History] Cholecalciferol (Vitamin D3) [Vitamin D3] 1,000 unit PO DAILY 07/13/21 [History] Citalopram Hydrobromide [Celexa] 10 mg PO DAILY 07/13/21 [History] Ibuprofen 200 mg PO Q6HPRN PRN 07/13/21 [History] Insulin Glargine [Lantus Insulin] 10 unit SQ HS 07/13/21 [History] Ipratropium/Albuterol Sulfate [Iprat-Albut 0.5-3(2.5) mg/3 ml] 1 neb IH Q6HPRN PRN 07/13/21 [History] Furosemide 20 mg [Lasix 20 mg] 20 mg PO DAILY 10/04/21 [History] Potassium Chloride [Klor-Con] 20 meq PO DAILY 10/04/21 [History] Hx Tetanus, Diphtheria Vaccination/Date Given: Yes Hx Influenza Vaccination/Date Given: Yes Hx Pneumococcal Vaccination/Date Given: Yes Immunizations Up to Date: Yes Travel Risk - International Travel Have you traveled outside of the country in past 3 weeks: No - Coronavirus Screening Are you exhibiting any of the following symptoms?: No Close contact with a COVID-19 positive Pt in past 14-21 Days: No - Vaccine Status Have you recieved a Covid-19 vaccination: Yes Dining Car Hop: Unknown - Vaccination Dates Dates if Unknown: 2020 - Review of Systems Constitutional: No Symptoms Eyes: No Symptoms Ears, Nose, & Throat: No Symptoms Respiratory: Dyspnea Cardiac: No Symptoms Abdominal/Gastrointestinal: No Symptoms Genitourinary Symptoms: No Symptoms Musculoskeletal: No Symptoms Skin: No Symptoms Neurological: No Symptoms Psychological: No Symptoms Endocrine: No Symptoms - Past Medical History Pertinent Past Medical History: Yes Neurological History: Dementia ENT History: No Pertinent History Cardiac History: Aneurysm, Hypertension Respiratory History: COPD Endocrine Medical History: Diabetes Type II Musculoskeletal History: No Pertinent History GI Medical History: Hernia History: No Pertinent History Psycho-Social History: No Pertinent History Male Reproductive Disorders: Prostate Problems Other Medical History: Shingles, postherpetic neuralgia - Past Surgical History Past Surgical History: Yes Gastrointestinal: Hernia Repair - Social History Smoking Status: Former smoker Exposure to second hand smoke: No Drug Use: none Patient Lives Alone: No - Nursing Vital Signs Nursing Vital Signs: Initial Vital Signs Temperature 97.9 F 10/04/21 18:21 Pulse Rate 64 10/04/21 18:21 Respiratory Rate 22 10/04/21 18:21 Blood Pressure 139/46 10/04/21 18:21 O2 Sat by Pulse Oximetry 98 10/04/21 18:21 Pain Scale Pain Intensity 0 - Physical Exam General Appearance: no apparent distress, alert Eye Exam: PERRL/EOMI, eyes nml inspection Ears, Nose, Throat Exam: hearing grossly normal, normal ENT inspection, normal pharynx Neck Exam: normal inspection, non-tender, supple, full range of motion Respiratory Exam: normal breath sounds, lungs clear, airway intact, No chest tenderness, No respiratory distress Cardiovascular/Chest Exam: normal heart sounds, regular rate/rhythm Abdominal/Gastrointestinal Exam: soft, normal bowel sounds, No tenderness Rectal Exam: not done Extremity Exam: non-tender, normal range of motion, pelvis stable, pedal edema (Bilateral) Neurologic Exam: alert, oriented x 3, cooperative, 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 No significant changes when compared to EKG dated 07/14/21) Ordered Tests: Active Orders 24 hr Category Date Time Status Employee Benefits Coordinator STAT Care 10/04/21 18:29 Active EKG-ER Only STAT Care 10/04/21 18:24 Active IV Insertion STAT Care 10/04/21 18:24 Active Pulse Oximetry (ED) STAT Care 10/04/21 18:24 Active CHEST WITH CONTRAST [CT] Stat Exams 10/04/21 19:30 Taken BLOOD CULTURE Stat Lab 10/04/21 18:01 Received CBC W DIFF Stat Lab 10/04/21 18:58 Completed CMP Stat Lab 10/04/21 18:58 Completed D-DIMER QUANTITATIVE Stat Lab 10/04/21 18:58 Completed INFLUENZA A+B JASVIR Stat Lab 10/04/21 18:58 Completed Lactic Acid Stat Lab 10/04/21 18:24 Completed Lactic Acid Stat Lab 10/04/21 21:27 Received MAGNESIUM Stat Lab 10/04/21 18:58 Completed NT PRO BNP Stat Lab 10/04/21 18:58 Completed PROTIME WITH INR Stat Lab 10/04/21 18:58 Completed TROPONIN Q3H Lab 10/04/21 18:58 Completed TROPONIN Q3H Lab 10/04/21 21:26 Received TROPONIN Q3H Lab 10/05/21 00:30 Ordered TROPONIN Q3H Lab 10/05/21 03:30 Ordered TROPONIN Q3H Lab 10/05/21 06:30 Ordered Lab/Rad Data: Laboratory Result Diagrams 10/04/21 18:58 10/04/21 18:58 Laboratory Results 10/04/21 10/04/21 10/04/21 Range/Units 18:58 18:58 18:58 WBC (4.0-10.5) K/mm3 RBC (4.1-5.6) M/mm3 Hgb (12.5-18.0) gm/dl Hct (42-50) % MCV (78-100) fl MCH (26-32) pg MCHC (32-36) g/dl RDW (11.5-14.0) % Plt Count (150-450) K/mm3 MPV (7.5-11.0) fl Gran % (36.0-66.0) % Eos # (Auto) (0-0.5) Absolute Lymphs (auto) (1.0-4.6) Absolute Monos (auto) (0.0-1.3) Lymphocytes % (24.0-44.0) % Monocytes % (0.0-12.0) % Eosinophils % (0.00-5.0) % Basophils % (0.0-0.4) % Absolute Granulocytes (1.4-6.9) Basophils # (0-0.4) PT 11.1 (9.4-12.5) SECONDS INR 0.94 (0.8-3.0) D-Dimer 1147 H* (215-500) ng/mL Sodium (137-145) mmol/L Potassium (3.5-5.1) mmol/L Chloride (98-107) mmol/L Carbon Dioxide (22-30) mmol/L Anion Gap (5-15) MEQ/L BUN (9-20) mg/dL Creatinine (0.66-1.25) mg/dL Estimated GFR ML/MIN Glucose (74-106) mg/dL Lactic Acid (0.4-2.0) Calcium (8.4-10.2) mg/dL Magnesium (1.6-2.3) mg/dL Total Bilirubin (0.2-1.3) mg/dL AST (17-59) U/L ALT (0-50) U/L Alkaline Phosphatase (38-126) U/L Troponin I < 0.012 (0.000-0.034) ng/mL NT-Pro-B Natriuret Pep (0-1800) pg/mL Serum Total Protein (6.3-8.2) g/dL Albumin (3.5-5.0) g/dL Influenza Type A Ag NEGATIVE (NEGATIVE) Influenza Type B Ag NEGATIVE (NEGATIVE) 10/04/21 10/04/21 10/04/21 Range/Units 18:58 18:58 18:24 WBC 9.0 (4.0-10.5) K/mm3 RBC 4.09 L (4.1-5.6) M/mm3 Hgb 11.8 L (12.5-18.0) gm/dl Hct 38.3 L (42-50) % MCV 93.6 (78-100) fl MCH 28.9 (26-32) pg MCHC 30.8 L (32-36) g/dl RDW 14.5 H (11.5-14.0) % Plt Count 232 (150-450) K/mm3 MPV 10.1 (7.5-11.0) fl Gran % 58.0 (36.0-66.0) % Eos # (Auto) 0.45 (0-0.5) Absolute Lymphs (auto) 2.38 (1.0-4.6) Absolute Monos (auto) 0.90 (0.0-1.3) Lymphocytes % 26.6 (24.0-44.0) % Monocytes % 10.1 (0.0-12.0) % Eosinophils % 5.0 (0.00-5.0) % Basophils % 0.3 (0.0-0.4) % Absolute Granulocytes 5.19 (1.4-6.9) Basophils # 0.03 (0-0.4) PT (9.4-12.5) SECONDS INR (0.8-3.0) D-Dimer (215-500) ng/mL Sodium 141 (137-145) mmol/L Potassium 5.0 (3.5-5.1) mmol/L Chloride 102 (98-107) mmol/L Carbon Dioxide 33 H (22-30) mmol/L Anion Gap 11.3 (5-15) MEQ/L BUN 11 (9-20) mg/dL Creatinine 1.23 (0.66-1.25) mg/dL Estimated GFR 59.9 ML/MIN Glucose 261 H (74-106) mg/dL Lactic Acid 1.9 (0.4-2.0) Calcium 9.2 (8.4-10.2) mg/dL Magnesium 1.7 (1.6-2.3) mg/dL Total Bilirubin 0.30 (0.2-1.3) mg/dL AST 20 (17-59) U/L ALT 13 (0-50) U/L Alkaline Phosphatase 91 (38-126) U/L Troponin I (0.000-0.034) ng/mL NT-Pro-B Natriuret Pep 422 (0-1800) pg/mL Serum Total Protein 7.2 (6.3-8.2) g/dL Albumin 4.0 (3.5-5.0) g/dL Influenza Type A Ag (NEGATIVE) Influenza Type B Ag (NEGATIVE) - Progress Progress: improved Air Movement: fair Progress Note: 10/04/21 21:45 CAT scan of the chest with contrast shows no acute pulmonary embolus. There is evidence of chronic emphysema. There is no evidence of any pneumonia or infiltrate. Medical decision making: Clinically, the patient states he is breathing well. He is oxygen saturation on 3 L oxygen nasal cannula (patient uses this at home) is 98 to 99%. His work-up is negative for any acute emergent findings. I called his primary care physician, Dr. Plummer. I reviewed the patient's labs with Dr. Plummer as well as the radiographic findings. Dr. Plummer states to discharge the patient to home and follow-up in his office tomorrow. Patient already has an appointment in the early afternoon hours. However, I told the patient's daughter to call the office in the morning to see if they want to see him earlier. The patient's daughter is agreeable to having the patient discharged to home. Blood Culture(s) Obtained: Yes Counseled pt/family regarding: lab results, diagnosis, rad results - Departure Departure Disposition: Home Clinical Impression: Shortness of breath Condition: Stable Critical Care Time: No Referrals: ALANNA PLUMMER MD [Primary Care Provider] - Follow up/PCP as directed Additional Instructions: Take all your medications as prescribed. Call Dr. Plummer's office tomorrow morning to make them aware that the patient is to be seen by Dr. Plummer. Remind them that the patient has an appointment in the early afternoon.
[2021-10-04 19:13] LABS: INR 0.94 (0.8-3.0); PROTIME 11.1 SECONDS (9.4-12.5)
[2021-10-04 19:19] LABS: ANION GAP 11.3 MEQ/L (5-15); BILIRUBIN,TOTAL 0.3 mg/dL (0.2-1.3); Calcium 9.2 mg/dL (8.4-10.2); Creatinine 1 1.23 mg/dL (0.66-1.25); EST GLOMERULAR FILTRATION RATE 59.9 ML/MIN; MAGNESIUM 1.7 mg/dL (1.6-2.3); Total Protein 7.2 g/dL (6.3-8.2)
[2021-10-04 19:39] LABS: INFLUENZA A NEGATIVE (NEGATIVE); INFLUENZA B NEGATIVE (NEGATIVE)
--- NOTE | 2021-10-05 08:47 | XRAY ---
Indication: Short of breath, bilateral leg swelling, and elevated d-dimer. COPD. Multiple contiguous axial images obtained through the chest using 80 cc Isovue 370 contrast and PE protocol. Comparison: None There is good opacification of the pulmonary arteries. However diffuse respiration artifact limits evaluation for pulmonary embolus. No obvious pulmonary embolus. Heart is not enlarged. Aorta is minimally arteriosclerotic without aneurysm/dissection. Small subcarinal and right hilar calcified nodes. No pathologic mediastinal/hilar lymphadenopathy. Lungs demonstrates diffuse centrilobular pulmonary emphysema, scattered bilateral fibrosis/scarring, and mild bilateral dependent atelectasis. No suspicious pulmonary mass, infiltrate, or effusion. Bony thorax intact with mild osteopenia and mild degenerative changes throughout the spine. Limited upper abdomen unremarkable. Impression: 1. Pulmonary embolus evaluation limited due to diffuse respiration artifact. No obvious pulmonary embolus. 2. Pulmonary emphysema, scattered fibrosis/scarring, chronic bony findings, and old granulomatous disease.
== END 2021-10-04 22:15 | disposition home or self-care (01) ==
LOC: ED 18:19
DX: R06.02 Shortness of breath (principal); R05.9 Cough, unspecified; R60.9 Edema, unspecified; Z79.899 Other long term (current) drug therapy
CPT/HCPCS: 36000; 36415; 71260; 80053; 83605; 83735; 83880; 84484; 85025; 85379; 85610; 87040; 87400; 93005; 93041; 94760; 99284

== ENCOUNTER 2021-10-10 16:28 | Observation (INO) | payer MEDICARE ==
--- NOTE | 2021-10-10 17:01 | XRAY ---
Indication: Acute mental status change. Multiple contiguous axial images obtained through the head without contrast. Comparison: July 13, 2021. There remains age-appropriate global atrophy and moderate periventricular degenerative micro-ischemia bilaterally. No acute intracranial hemorrhage, abnormal extra-axial fluid collection, or mass effect. Fourth ventricle is midline without hydrocephalus. Bony calvarium intact. Visualized paranasal sinuses and mastoid air cells are clear. Impression: Continued nonacute senile brain.
[2021-10-10] MEDS: Sodium Chloride 0.9% 1000 ML 1,000 ML IV SCH (17:13)
[2021-10-10 17:16] LABS: Absolute Neutrophil Ct (ANC) 7.71 (1.4-6.9); BASOPHIL % 0.3 % (0.0-0.4); Basophil (Absolute #) 0.04 (0-0.4); Eosinophil % 2.2 % (0.00-5.0); Eosinophil (Absolute #) 0.25 (0-0.5); Hematocrit 35.1 % (42-50); Hemoglobin 11.1 gm/dl (12.5-18.0); Lymphocyte (Absolute #) 2.29 (1.0-4.6); Lymphocytes % 19.8 % (24.0-44.0); Mean Cell Volume 91.9 fl (78-100); Mean Corpuscular Hemoglobin 29.1 pg (26-32); Mean Corpuscular Hgb Concent. 31.6 g/dl (32-36); Mean Platelet Volume 10.3 fl (7.5-11.0); Monocyte (Absolute #) 1.28 (0.0-1.3); Monocytes % 11.1 % (0.0-12.0); Neutrophil % 66.6 % (36.0-66.0); Platelet Count 191 K/mm3 (150-450); Red Blood Count 3.82 M/mm3 (4.1-5.6); Red Cell Distribution Width 14.5 % (11.5-14.0); White Blood Count 11.6 K/mm3 (4.0-10.5)
[2021-10-10 17:28] LABS: ALBUMIN 3.8 g/dL (3.5-5.0); ALKALINE PHOSPHATASE 76 U/L (38-126); ANION GAP 13.7 MEQ/L (5-15); BLOOD UREA NITROGEN 21 mg/dL (9-20); CHLORIDE 102 mmol/L (98-107); Calcium 9.1 mg/dL (8.4-10.2); Carbon Dioxide 27 mmol/L (22-30); Creatinine 1 1.39 mg/dL (0.66-1.25); ETHYL ALCOHOL < 10 mg/dL (0-10); Glucose 231 mg/dL (74-106); Potassium 5.7 mmol/L (3.5-5.1); SGOT/AST 33 U/L (17-59); SGPT/ALT 11 U/L (0-50); SODIUM 138 mmol/L (137-145)
[2021-10-10 17:40] LABS: Appearance CLEAR (CLEAR); Bilirubin NEGATIVE (NEGATIVE); Blood NEGATIVE Ery/ul (0-5); Glucose NEGATIVE (NEGATIVE); Ketones NEGATIVE (NEGATIVE); Leukocyte Esterase NEGATIVE (NEGATIVE); Mucus SLIGHT /HPF (NEGATIVE); Nitrite NEGATIVE (NEGATIVE); Protein,Urine Dip NEGATIVE (Negative); Specific Gravity 1.013 (1.005-1.025); Urobilinogen NEGATIVE mg/dL (0-1)
[2021-10-10 17:42] LABS: Amphetamine,Urine NEGATIVE (NEGATIVE); Barbiturate,Urine NEGATIVE (NEGATIVE); Benzodiazepine,Urine NEGATIVE (NEGATIVE); Cocaine,Urine NEGATIVE (NEGATIVE); Methadone,Urine NEGATIVE (NEGATIVE); Opiate,Urine NEGATIVE (NEGATIVE); PCP,Urine NEGATIVE (NEGATIVE); THC,Urine NEGATIVE (NEGATIVE)
--- NOTE | 2021-10-10 20:29 | ERPHSYRPT ---
- History of Present Illness Time Seen by Provider: 10/10/21 16:40 Source: EMS Exam Limitations: other (HPI limited as patient has altered mental status.) Patient Subjective Stated Complaint: EMS States "Family called and said he is hallucinating and not acting right. Family stated he was his normal self yesterday but today he is not." Triage Nursing Assessment: Pt presented alert and confused. Pt resting comfortably on the bed. PT has no apparent respiratory distress. Pt able to speak in clear full sentences . PT pupils are PERRL Physician History: Patient is an 81-year-old male brought to our ED via EMS for evaluation of altered mental status. Family reports that patient has been hallucinating. Change in behavior was observed today. Family reports that patient was acting normal yesterday. Patient is a poor historian and unable to contribute significantly to this HPI. Patient does not appear to be in distress. No reported trauma. No fever. No nausea or vomiting. No diaphoresis. No rash. Symptoms are mild to moderate in intensity. No specific worsening improving factors. Patient voices no other complaints or concerns at this time. Timing/Duration: today Severity: mild Modifying Factors: Improves With: nothing Associated Symptoms: denies symptoms Allergies/Adverse Reactions: KAYKAY Inhibitors Allergy (Intermediate, Verified 01/06/21 21:19) Home Medications: Amlodipine Besylate 10 tab PO DAILY 01/06/21 [History] Aspirin 81 gm Chew [Baby Aspirin 81 mg Chew] 81 mg PO DAILY 01/06/21 [History] Donepezil HCl 10 mg [Aricept 10 MG] 10 mg PO HS 01/06/21 [History] Finasteride 5 mg [Proscar 5 MG] 5 mg PO DAILY 01/06/21 [History] Gabapentin 300 mg PO TID 01/06/21 [History] Metformin HCl 500 mg [Glucophage 500 MG] 500 mg PO BIDWMEALS 01/06/21 [History] Simvastatin 5 mg PO HS 01/06/21 [History] Tamsulosin HCl 0.4 mg PO DAILY 01/06/21 [History] Tiotropium [place] Inhaler [Spiriva 18 Mcg/Cap Inhaler] 1 puff PO DAILY 01/06/21 [History] Acetaminophen 325 mg [Tylenol 325 mg] 325 mg PO Q4HPRN PRN 07/13/21 [History] Cholecalciferol (Vitamin D3) [Vitamin D3] 1,000 unit PO DAILY 07/13/21 [History] Citalopram Hydrobromide [Celexa] 10 mg PO DAILY 07/13/21 [History] Ibuprofen 200 mg PO Q6HPRN PRN 07/13/21 [History] Insulin Glargine [Lantus Insulin] 10 unit SQ HS 07/13/21 [History] Ipratropium/Albuterol Sulfate [Iprat-Albut 0.5-3(2.5) mg/3 ml] 1 neb IH Q6HPRN PRN 07/13/21 [History] Furosemide 20 mg [Lasix 20 mg] 20 mg PO DAILY 10/04/21 [History] Potassium Chloride [Klor-Con] 20 meq PO DAILY 10/04/21 [History] Hx Tetanus, Diphtheria Vaccination/Date Given: Yes Hx Influenza Vaccination/Date Given: Yes Hx Pneumococcal Vaccination/Date Given: Yes Immunizations Up to Date: Yes Travel Risk - International Travel Have you traveled outside of the country in past 3 weeks: No - Coronavirus Screening Are you exhibiting any of the following symptoms?: No Close contact with a COVID-19 positive Pt in past 14-21 Days: No - Vaccine Status Have you recieved a Covid-19 vaccination: Yes Medical Administrative Specialist: Unknown - Vaccination Dates Dates if Unknown: 2020 - Review of Systems All Other Systems: Unable due to condition - Past Medical History Pertinent Past Medical History: Yes Neurological History: Dementia ENT History: No Pertinent History Cardiac History: Aneurysm, Hypertension Respiratory History: COPD Endocrine Medical History: Diabetes Type II Musculoskeletal History: No Pertinent History GI Medical History: Hernia History: No Pertinent History Psycho-Social History: No Pertinent History Male Reproductive Disorders: Prostate Problems Other Medical History: Shingles, postherpetic neuralgia - Past Surgical History Past Surgical History: Yes Gastrointestinal: Hernia Repair - Social History Smoking Status: Former smoker Exposure to second hand smoke: No Drug Use: none Patient Lives Alone: No - Nursing Vital Signs Nursing Vital Signs: Initial Vital Signs Temperature 98.9 F 10/10/21 16:32 Pulse Rate 71 10/10/21 16:32 Respiratory Rate 22 10/10/21 16:32 Blood Pressure 141/71 10/10/21 16:32 O2 Sat by Pulse Oximetry 99 10/10/21 16:32 Pain Scale Pain Intensity 0 - Physical Exam General Appearance: no apparent distress, alert Eye Exam: PERRL/EOMI, eyes nml inspection, No scleral icterus Ears, Nose, Throat Exam: normal ENT inspection, TMs normal, pharynx normal, moist mucous membranes Neck Exam: normal inspection, non-tender, supple, full range of motion Respiratory Exam: normal breath sounds, lungs clear, No chest tenderness, No respiratory distress Cardiovascular Exam: regular rate/rhythm, normal heart sounds, normal peripheral pulses Gastrointestinal/Abdomen Exam: soft, normal bowel sounds, No tenderness, No mass Back Exam: normal inspection, normal range of motion, No CVA tenderness, No vertebral tenderness Extremity Exam: normal inspection, normal range of motion, pelvis stable Neurologic Exam: alert, oriented x 3, cooperative, normal mood/affect, sensation nml, No motor deficits Skin Exam: normal color, warm, dry, No rash Lymphatic Exam: No adenopathy SpO2 Interpretation: normal SpO2: 99 O2 Delivery: Room Air - Course Nursing assessment & vital signs reviewed: Yes EKG Interpreted by Me: RATE (62), Sinus Rhythm, NORMAL AXIS, NORMAL INTERVALS - Radiology Exams Chest X-ray Interpretation: Interpreted by me (Bibasilar scarring/fibrosis and atelec tasis. COPD. Normal cardiac silhouette. No acute cardiopulmonary abnormalities. Osteopenia) - CT Exams Head CT Interpretation: Tele-radiologist Report (There remains age-appropriate global atrophy and moderate periventricular degenerative microischemia bilaterally. No acute intracranial hemorrhage. No abnormal extra-axial fluid collection or mass-effect. 4th ventricle is midline without hydrocephalus. Bony calvarium intact. Visualized paranasa) Ordered Tests: Active Orders 24 hr Category Date Time Status Bedrest ROUTINE Activity 10/10/21 23:52 Active Press Manager STAT Care 10/10/21 16:38 Completed Code Status Order ROUTINE Care 10/10/21 23:52 Active EKG-ER Only STAT Care 10/10/21 16:37 Completed IV Care Q6H Care 10/10/21 23:52 Active IV Insertion STAT Care 10/10/21 16:37 Completed Neuro Checks Q4H Care 10/10/21 23:[address] in Observation ROUTINE Care 10/10/21 23:52 Active Pulse Oximetry (ED) STAT Care 10/10/21 16:37 Completed Telemetry q6h Care 10/10/21 23:52 Active Consistent Carbohydrate Diet 1800 Calorie Diet 10/10/21 Breakfast Active CHEST 1 VIEW (PORTABLE) Stat Exams 10/10/21 17:18 Taken HEAD WITHOUT CONTRAST [CT] Stat Exams 10/10/21 16:37 Completed BLOOD CULTURE Stat Lab 10/10/21 17:05 Received BMP Stat Lab 10/10/21 20:41 Completed CBC W DIFF AM.LAB Lab 10/11/21 04:00 Ordered CBC W DIFF Stat Lab 10/10/21 16:37 Completed CMP AM.LAB Lab 10/11/21 04:00 Ordered CMP Stat Lab 10/10/21 16:55 Completed ETHYL ALCOHOL Stat Lab 10/10/21 16:55 Completed Lactic Acid Stat Lab 10/10/21 17:00 Completed POCT GLUCOSE Stat Lab 10/10/21 16:37 Completed TROPONIN Q3H Lab 10/10/21 20:41 Completed TROPONIN Q3H Lab 10/10/21 23:50 Completed UA W/RFX UR CULTURE Stat Lab 10/10/21 16:40 Completed Urine Triage Profile Stat Lab 10/10/21 16:40 Completed Pulse Oximetry .spot check RT 10/10/21 23:52 Active Medication Summary Generic Name Dose Route Start Last Admin Trade Name Freq PRN Reason Stop Dose Admin Sodium Chloride 1,000 mls @ 100 mls/hr 10/10/21 16:45 10/11/21 00:31 Sodium Chloride 0.9% 1000 Ml IV 11/09/21 16:44 100 mls/hr .Q10H RAVEN Administration Morphine Sulfate 2 mg 10/10/21 23:52 Morphine Sulfate 2 Mg/Ml Inj IV 10/15/21 23:51 Q4H PRN PRN PAIN Lab/Rad Data: Laboratory Result Diagrams 10/10/21 16:37 10/10/21 20:41 Laboratory Results 10/10/21 10/10/21 10/10/21 Range/Units 21:59 20:41 20:41 WBC (4.0-10.5) K/mm3 RBC (4.1-5.6) M/mm3 Hgb (12.5-18.0) gm/dl Hct (42-50) % MCV (78-100) fl MCH (26-32) pg MCHC (32-36) g/dl RDW (11.5-14.0) % Plt Count (150-450) K/mm3 MPV (7.5-11.0) fl Gran % (36.0-66.0) % Eos # (Auto) (0-0.5) Absolute Lymphs (auto) (1.0-4.6) Absolute Monos (auto) (0.0-1.3) Lymphocytes % (24.0-44.0) % Monocytes % (0.0-12.0) % Eosinophils % (0.00-5.0) % Basophils % (0.0-0.4) % Absolute Granulocytes (1.4-6.9) Basophils # (0-0.4) Sodium 140 (137-145) mmol/L Potassium 4.3 D (3.5-5.1) mmol/L Chloride 103 (98-107) mmol/L Carbon Dioxide 31 H (22-30) mmol/L Anion Gap 10.9 (5-15) MEQ/L BUN 19 (9-20) mg/dL Creatinine 1.25 (0.66-1.25) mg/dL Estimated GFR 58.8 ML/MIN Glucose 170 H (74-106) mg/dL POC Glucometer (74 to 106) mg/dL Lactic Acid (0.4-2.0) Calcium 8.7 (8.4-10.2) mg/dL Total Bilirubin (0.2-1.3) mg/dL AST (17-59) U/L ALT (0-50) U/L Alkaline Phosphatase (38-126) U/L Ammonia (9-30) umol/L Troponin I < 0.012 (0.000-0.034) ng/mL Serum Total Protein (6.3-8.2) g/dL Albumin (3.5-5.0) g/dL Urine Color (YELLOW) Urine Appearance (CLEAR) Urine pH (5-6) Ur Specific Jamieson (1.005-1.025) Urine Protein (Negative) Urine Ketones (NEGATIVE) Urine Blood (0-5) Silvano/ul Urine Nitrite (NEGATIVE) Urine Bilirubin (NEGATIVE) Urine Urobilinogen (0-1) mg/dL Ur Leukocyte Esterase (NEGATIVE) Urine WBC (Auto) (0-5) /HPF Urine RBC (Auto) (0-2) /HPF U Hyaline Cast (Auto) (0-2) /LPF U Epithel Cells (Auto) (FEW) /HPF Urine Bacteria (Auto) (NEGATIVE) /HPF Urine Mucus (Auto) (NEGATIVE) /HPF Urine Culture Reflexed (NO) Urine Glucose (NEGATIVE) mg/dL Urine Opiates Level (NEGATIVE) Ur Methadone (NEGATIVE) Urine Barbiturates (NEGATIVE) Ur Phencyclidine (PCP) (NEGATIVE) Urine Amphetamine (NEGATIVE) U Benzodiazepine Level (NEGATIVE) Urine Cocaine (NEGATIVE) Urine Marijuana (THC) (NEGATIVE) Ethyl Alcohol (0-10) mg/dL Influenza Type A Ag NEGATIVE (NEGATIVE) Influenza Type B Ag NEGATIVE (NEGATIVE) RSV (PCR) NEGATIVE (Negative) SARS-CoV-2 (PCR) NEGATIVE (NEGATIVE) 10/10/21 10/10/21 10/10/21 Range/Units 17:00 16:55 16:55 WBC (4.0-10.5) K/mm3 RBC (4.1-5.6) M/mm3 Hgb (12.5-18.0) gm/dl Hct (42-50) % MCV (78-100) fl MCH (26-32) pg MCHC (32-36) g/dl RDW (11.5-14.0) % Plt Count (150-450) K/mm3 MPV (7.5-11.0) fl Gran % (36.0-66.0) % Eos # (Auto) (0-0.5) Absolute Lymphs (auto) (1.0-4.6) Absolute Monos (auto) (0.0-1.3) Lymphocytes % (24.0-44.0) % Monocytes % (0.0-12.0) % Eosinophils % (0.00-5.0) % Basophils % (0.0-0.4) % Absolute Granulocytes (1.4-6.9) Basophils # (0-0.4) Sodium 138 (137-145) mmol/L Potassium 5.7 H (3.5-5.1) mmol/L Chloride 102 (98-107) mmol/L Carbon Dioxide 27 (22-30) mmol/L Anion Gap 13.7 (5-15) MEQ/L BUN 21 H (9-20) mg/dL Creatinine 1.39 H (0.66-1.25) mg/dL Estimated GFR 52.0 ML/MIN Glucose 231 H (74-106) mg/dL POC Glucometer (74 to 106) mg/dL Lactic Acid 1.6 (0.4-2.0) Calcium 9.1 (8.4-10.2) mg/dL Total Bilirubin 0.80 (0.2-1.3) mg/dL AST 33 (17-59) U/L ALT 11 (0-50) U/L Alkaline Phosphatase 76 (38-126) U/L Ammonia < 9 L (9-30) umol/L Troponin I (0.000-0.034) ng/mL Serum Total Protein 7.0 (6.3-8.2) g/dL Albumin 3.8 (3.5-5.0) g/dL Urine Color (YELLOW) Urine Appearance (CLEAR) Urine pH (5-6) Ur Specific Jamieson (1.005-1.025) Urine Protein (Negative) Urine Ketones (NEGATIVE) Urine Blood (0-5) Silvano/ul Urine Nitrite (NEGATIVE) Urine Bilirubin (NEGATIVE) Urine Urobilinogen (0-1) mg/dL Ur Leukocyte Esterase (NEGATIVE) Urine WBC (Auto) (0-5) /HPF Urine RBC (Auto) (0-2) /HPF U Hyaline Cast (Auto) (0-2) /LPF U Epithel Cells (Auto) (FEW) /HPF Urine Bacteria (Auto) (NEGATIVE) /HPF Urine Mucus (Auto) (NEGATIVE) /HPF Urine Culture Reflexed (NO) Urine Glucose (NEGATIVE) mg/dL Urine Opiates Level (NEGATIVE) Ur Methadone (NEGATIVE) Urine Barbiturates (NEGATIVE) Ur Phencyclidine (PCP) (NEGATIVE) Urine Amphetamine (NEGATIVE) U Benzodiazepine Level (NEGATIVE) Urine Cocaine (NEGATIVE) Urine Marijuana (THC) (NEGATIVE) Ethyl Alcohol < 10 (0-10) mg/dL Influenza Type A Ag (NEGATIVE) Influenza Type B Ag (NEGATIVE) RSV (PCR) (Negative) SARS-CoV-2 (PCR) (NEGATIVE) 10/10/21 10/10/21 10/10/21 Range/Units 16:40 16:40 16:37 WBC 11.6 H (4.0-10.5) K/mm3 RBC 3.82 L (4.1-5.6) M/mm3 Hgb 11.1 L (12.5-18.0) gm/dl Hct 35.1 L (42-50) % MCV 91.9 (78-100) fl MCH 29.1 (26-32) pg MCHC 31.6 L (32-36) g/dl RDW 14.5 H (11.5-14.0) % Plt Count 191 (150-450) K/mm3 MPV 10.3 (7.5-11.0) fl Gran % 66.6 H (36.0-66.0) % Eos # (Auto) 0.25 (0-0.5) Absolute Lymphs (auto) 2.29 (1.0-4.6) Absolute Monos (auto) 1.28 (0.0-1.3) Lymphocytes % 19.8 L (24.0-44.0) % Monocytes % 11.1 (0.0-12.0) % Eosinophils % 2.2 (0.00-5.0) % Basophils % 0.3 (0.0-0.4) % Absolute Granulocytes 7.71 H (1.4-6.9) Basophils # 0.04 (0-0.4) Sodium (137-145) mmol/L Potassium (3.5-5.1) mmol/L Chloride (98-107) mmol/L Carbon Dioxide (22-30) mmol/L Anion Gap (5-15) MEQ/L BUN (9-20) mg/dL Creatinine (0.66-1.25) mg/dL Estimated GFR ML/MIN Glucose (74-106) mg/dL POC Glucometer (74 to 106) mg/dL Lactic Acid (0.4-2.0) Calcium (8.4-10.2) mg/dL Total Bilirubin (0.2-1.3) mg/dL AST (17-59) U/L ALT (0-50) U/L Alkaline Phosphatase (38-126) U/L Ammonia (9-30) umol/L Troponin I (0.000-0.034) ng/mL Serum Total Protein (6.3-8.2) g/dL Albumin (3.5-5.0) g/dL Urine Color YELLOW (YELLOW) Urine Appearance CLEAR (CLEAR) Urine pH 5.0 (5-6) Ur Specific Jamieson 1.013 (1.005-1.025) Urine Protein NEGATIVE (Negative) Urine Ketones NEGATIVE (NEGATIVE) Urine Blood NEGATIVE (0-5) Silvano/ul Urine Nitrite NEGATIVE (NEGATIVE) Urine Bilirubin NEGATIVE (NEGATIVE) Urine Urobilinogen NEGATIVE (0-1) mg/dL Ur Leukocyte Esterase NEGATIVE (NEGATIVE) Urine WBC (Auto) NONE (0-5) /HPF Urine RBC (Auto) NONE (0-2) /HPF U Hyaline Cast (Auto) 6-10 (0-2) /LPF U Epithel Cells (Auto) NONE (FEW) /HPF Urine Bacteria (Auto) NONE (NEGATIVE) /HPF Urine Mucus (Auto) SLIGHT (NEGATIVE) /HPF Urine Culture Reflexed NO (NO) Urine Glucose NEGATIVE (NEGATIVE) mg/dL Urine Opiates Level NEGATIVE (NEGATIVE) Ur Methadone NEGATIVE (NEGATIVE) Urine Barbiturates NEGATIVE (NEGATIVE) Ur Phencyclidine (PCP) NEGATIVE (NEGATIVE) Urine Amphetamine NEGATIVE (NEGATIVE) U Benzodiazepine Level NEGATIVE (NEGATIVE) Urine Cocaine NEGATIVE (NEGATIVE) Urine Marijuana (THC) NEGATIVE (NEGATIVE) Ethyl Alcohol (0-10) mg/dL Influenza Type A Ag (NEGATIVE) Influenza Type B Ag (NEGATIVE) RSV (PCR) (Negative) SARS-CoV-2 (PCR) (NEGATIVE) 10/10/21 Range/Units 16:37 WBC (4.0-10.5) K/mm3 RBC (4.1-5.6) M/mm3 Hgb (12.5-18.0) gm/dl Hct (42-50) % MCV (78-100) fl MCH (26-32) pg MCHC (32-36) g/dl RDW (11.5-14.0) % Plt Count (150-450) K/mm3 MPV (7.5-11.0) fl Gran % (36.0-66.0) % Eos # (Auto) (0-0.5) Absolute Lymphs (auto) (1.0-4.6) Absolute Monos (auto) (0.0-1.3) Lymphocytes % (24.0-44.0) % Monocytes % (0.0-12.0) % Eosinophils % (0.00-5.0) % Basophils % (0.0-0.4) % Absolute Granulocytes (1.4-6.9) Basophils # (0-0.4) Sodium (137-145) mmol/L Potassium (3.5-5.1) mmol/L Chloride (98-107) mmol/L Carbon Dioxide (22-30) mmol/L Anion Gap (5-15) MEQ/L BUN (9-20) mg/dL Creatinine (0.66-1.25) mg/dL Estimated GFR ML/MIN Glucose (74-106) mg/dL POC Glucometer 232 H (74 to 106) mg/dL Lactic Acid (0.4-2.0) Calcium (8.4-10.2) mg/dL Total Bilirubin (0.2-1.3) mg/dL AST (17-59) U/L ALT (0-50) U/L Alkaline Phosphatase (38-126) U/L Ammonia (9-30) umol/L Troponin I (0.000-0.034) ng/mL Serum Total Protein (6.3-8.2) g/dL Albumin (3.5-5.0) g/dL Urine Color (YELLOW) Urine Appearance (CLEAR) Urine pH (5-6) Ur Specific Jamieson (1.005-1.025) Urine Protein (Negative) Urine Ketones (NEGATIVE) Urine Blood (0-5) Silvano/ul Urine Nitrite (NEGATIVE) Urine Bilirubin (NEGATIVE) Urine Urobilinogen (0-1) mg/dL Ur Leukocyte Esterase (NEGATIVE) Urine WBC (Auto) (0-5) /HPF Urine RBC (Auto) (0-2) /HPF U Hyaline Cast (Auto) (0-2) /LPF U Epithel Cells (Auto) (FEW) /HPF Urine Bacteria (Auto) (NEGATIVE) /HPF Urine Mucus (Auto) (NEGATIVE) /HPF Urine Culture Reflexed (NO) Urine Glucose (NEGATIVE) mg/dL Urine Opiates Level (NEGATIVE) Ur Methadone (NEGATIVE) Urine Barbiturates (NEGATIVE) Ur Phencyclidine (PCP) (NEGATIVE) Urine Amphetamine (NEGATIVE) U Benzodiazepine Level (NEGATIVE) Urine Cocaine (NEGATIVE) Urine Marijuana (THC) (NEGATIVE) Ethyl Alcohol (0-10) mg/dL Influenza Type A Ag (NEGATIVE) Influenza Type B Ag (NEGATIVE) RSV (PCR) (Negative) SARS-CoV-2 (PCR) (NEGATIVE) - Progress Progress: improved Progress Note: Case discussed with Dr. Trinh. We will admit patient to observation. Patient will have every 4 neurochecks and a social service consult. 10/10/21 21:37 Counseled pt/family regarding: lab results, diagnosis, rad results - Departure Departure Disposition: Observation Clinical Impression: Altered mental status, Dementia Condition: Stable Critical Care Time: No
[2021-10-10 21:01] LABS: ANION GAP 10.9 MEQ/L (5-15); Calcium 8.7 mg/dL (8.4-10.2); Creatinine 1 1.25 mg/dL (0.66-1.25); EST GLOMERULAR FILTRATION RATE 58.8 ML/MIN
[2021-10-10 21:03] LABS: Potassium 4.3 mmol/L (3.5-5.1)
[2021-10-10 22:39] LABS: INFLUENZA A NEGATIVE (NEGATIVE); INFLUENZA B NEGATIVE (NEGATIVE); RESPIRATORY SYNCTIAL VIRUS NEGATIVE (Negative); SARS-CoV-2 Xpert Express NEGATIVE (NEGATIVE)
[2021-10-10] MEDS ORDERED: MORPHINE SULFATE 2 MG INJ IV PRN (23:52)
[2021-10-11] MEDS: Sodium Chloride 0.9% 1000 ML 1,000 ML IV SCH (00:31)
[2021-10-11 06:03] LABS: Absolute Neutrophil Ct (ANC) 6.35 (1.4-6.9); BASOPHIL % 0.4 % (0.0-0.4); Basophil (Absolute #) 0.04 (0-0.4); Eosinophil % 2.5 % (0.00-5.0); Eosinophil (Absolute #) 0.24 (0-0.5); Hematocrit 33.4 % (42-50); Hemoglobin 10.5 gm/dl (12.5-18.0); Lymphocyte (Absolute #) 2.02 (1.0-4.6); Lymphocytes % 20.7 % (24.0-44.0); Mean Cell Volume 92.3 fl (78-100); Mean Corpuscular Hgb Concent. 31.4 g/dl (32-36); Mean Platelet Volume 10.1 fl (7.5-11.0); Monocyte (Absolute #) 1.12 (0.0-1.3); Monocytes % 11.5 % (0.0-12.0); Neutrophil % 64.9 % (36.0-66.0); Platelet Count 169 K/mm3 (150-450); Red Blood Count 3.62 M/mm3 (4.1-5.6); Red Cell Distribution Width 14.2 % (11.5-14.0); White Blood Count 9.8 K/mm3 (4.0-10.5)
[2021-10-11 07:26] LABS: ALBUMIN 3.2 g/dL (3.5-5.0); ALKALINE PHOSPHATASE 66 U/L (38-126); ANION GAP 9.7 MEQ/L (5-15); BLOOD UREA NITROGEN 16 mg/dL (9-20); CHLORIDE 102 mmol/L (98-107); Calcium 8.8 mg/dL (8.4-10.2); Carbon Dioxide 30 mmol/L (22-30); Creatinine 1 1.19 mg/dL (0.66-1.25); EST GLOMERULAR FILTRATION RATE > 60.0 ML/MIN; Glucose 135 mg/dL (74-106); Potassium 4.2 mmol/L (3.5-5.1); SGOT/AST 16 U/L (17-59); SGPT/ALT 9 U/L (0-50); SODIUM 138 mmol/L (137-145); Total Protein 5.9 g/dL (6.3-8.2)
--- NOTE | 2021-10-11 08:40 | XRAY ---
Indication: Cough. Pneumonia. Comparison: July 19, 2021. Portable chest unchanged again demonstrating COPD, left base subsegmental atelectasis/scarring, and a few scattered tiny calcified granulomas. Heart and mediastinal structures within normal limits. Bony thorax intact again with mild osteopenia and degenerative changes. Impression: Continued nonacute chest with chronic features.
[2021-10-15 16:53] VITALS: BP 112/68; PULSE 86; O2SAT 93
--- NOTE | 2021-10-27 13:07 | PCM.SSS ---
History of Present Illness - Chief Complaint Chief Complaint: AMS, dementia Date: 10/11/21 History of Present Illness: is a 81 year old male. Pt. presented to ER with altered mental status, pt. has had several recent hospitalizations and ER visits for the same. Thus far no medical etiology has been found. Pt. with dementia is noted. Pt. was placed in observation for further medical evaluation and possible placement or additional home help. - Review of Systems Constitutional: No Fever, No Chills Eyes: No Symptoms Ears, Nose, & Throat: No Symptoms Respiratory: No Cough, No Short Of Breath Cardiac: No Chest Pain, No Edema, No Syncope Abdominal/Gastrointestinal: No Abdominal Pain, No Nausea, No Vomiting, No Diarrhea Genitourinary Symptoms: No Dysuria Musculoskeletal: No Back Pain, No Neck Pain Skin: No Rash Neurological: Irritability, Speech Changes, Tremors, Other (confusion and chandler ucinations), No Dizziness, No Focal Weakness, No Sensory Changes Psychological: No Symptoms Endocrine: No Symptoms Hematologic/Lymphatic: No Symptoms Immunological/Allergic: No Symptoms Medications & Allergies Home Medications: Home Medication List Amlodipine Besylate 10 tab PO DAILY 01/06/21 [History Confirmed 10/10/21] Aspirin 81 gm Chew [Baby Aspirin 81 mg Chew] 81 mg PO DAILY 01/06/21 [History Confirmed 10/10/21] Donepezil HCl 10 mg [Aricept 10 MG] 10 mg PO HS 01/06/21 [History Confirmed 10/10/21] Finasteride 5 mg [Proscar 5 MG] 5 mg PO DAILY 01/06/21 [History Confirmed 10/10/21] Gabapentin 300 mg PO TID 01/06/21 [History Confirmed 10/10/21] Metformin HCl 500 mg [Glucophage 500 MG] 500 mg PO BIDWMEALS 01/06/21 [History Confirmed 10/10/21] Simvastatin 5 mg PO HS 01/06/21 [History Confirmed 10/10/21] Tamsulosin HCl 0.4 mg PO DAILY 01/06/21 [History Confirmed 10/10/21] Tiotropium [place] Inhaler [Spiriva 18 Mcg/Cap Inhaler] 1 puff PO DAILY 01/06/21 [History Confirmed 10/10/21] Acetaminophen 325 mg [Tylenol 325 mg] 325 mg PO Q4HPRN PRN 07/13/21 [History Confirmed 10/10/21] Cholecalciferol (Vitamin D3) [Vitamin D3] 1,000 unit PO DAILY 07/13/21 [History Confirmed 10/10/21] Citalopram Hydrobromide [Celexa] 10 mg PO DAILY 07/13/21 [History Confirmed 10/10/21] Ibuprofen 200 mg PO Q6HPRN PRN 07/13/21 [History Confirmed 10/10/21] Insulin Glargine [Lantus Insulin] 10 unit SQ HS 07/13/21 [History Confirmed 10/10/21] Ipratropium/Albuterol Sulfate [Iprat-Albut 0.5-3(2.5) mg/3 ml] 1 neb IH Q6HPRN PRN 07/13/21 [History Confirmed 10/10/21] Furosemide 20 mg [Lasix 20 mg] 20 mg PO DAILY 10/04/21 [History Confirmed 10/10/21] Potassium Chloride [Klor-Con] 20 meq PO DAILY 10/04/21 [History Confirmed 1 12/10/20] Allergies/Adverse Reactions: Allergies Allergy/AdvReac Type Severity Reaction Status Date / Time KAYKAY Inhibitors Allergy Intermediate Verified 01/06/21 21:19 - Past Medical History Past Medical History: Yes Neurological History: Dementia ENT History: No Pertinent History Cardiac History: Aneurysm, Hypertension Respiratory History: COPD Endocrine Medical History: Diabetes Type II Musculoskelatal History: No Pertinent History GI Medical History: Hernia History: No Pertinent History Pyscho-Social History: No Pertinent History Male Reproductive Disorders: Prostate Problems Comment: Shingles, postherpetic neuralgia - Past Surgical History Past Surgical History: Yes Neuro Surgical History: No Pertinent History Cardiac History: No Pertinent History Respiratory Surgery: No Pertinent History GI Surgical History: Hernia Repair Genitourinary Surgical Hx: No Pertinent History Musculskeletal Surgical Hx: No Pertinent History Male Surgical History: No Pertinent History - Social History Smoking Status: Former smoker Exposure to second hand smoke: No Alcohol: None Drug Use: none - Physical Exam General Appearance: no apparent distress, thin Neurologic Exam: cooperative, normal mood/affect, confusion Eye Exam: PERRL/EOMI, eyes nml inspection, No scleral icterus Ears, Nose, Throat Exam: normal ENT inspection, pharynx normal, moist mucous membranes, No pharyngeal erythema Neck Exam: normal inspection, non-tender, supple, full range of motion, No meningismus, No mass Respiratory Exam: normal breath sounds, lungs clear, No chest tenderness Cardiovascular Exam: regular rate/rhythm, normal heart sounds, normal peripheral pulses Gastrointestinal/Abdomen Exam: soft, normal bowel sounds, No tenderness, No distention, No mass, No guarding Rectal Exam: deferred Back Exam: normal inspection Extremity Exam: normal inspection Skin Exam: normal color, warm, dry, No rash, No petechiae, No jaundice Lymphatic Exam: No adenopathy Results - Labs Lab/Micro Results: Microbiology 10/10/21 17:05 Blood Culture Gram Stain - Final Blood Not Reportable Blood Culture - Final NO GROWTH 10/10/21 16:55 Blood Culture Gram Stain - Final Blood Not Reportable Blood Culture - Final NO GROWTH Assessment/Plan (1) Altered mental status Status: Acute Assessment & Plan: observation and possible further evaluation of altered mental status. Code(s): R41.82 - ALTERED MENTAL STATUS, UNSPECIFIED (2) Dementia Status: Acute Code(s): F03.90 - UNSPECIFIED DEMENTIA WITHOUT BEHAVIORAL DISTURBANCE (3) General weakness Status: Acute Code(s): R53.1 - WEAKNESS Hospital Summary - Hospital Course Hospital Course: Pt. placed on observation for further evaluation, and cardiac monitoring. Pt. was often drowsy but stable, no etiology was found other than his dementia and general poor health. Pt. family made decision that he would be best served given his rather acute deterioration with dementia for the aid of hospice. - Vitals & Intake/Output Vital Signs: Vital Signs Temperature 98.7 F 10/12/21 07:36 Pulse Rate 86 10/12/21 07:36 Respiratory Rate 21 10/12/21 07:36 Blood Pressure 112/68 10/12/21 07:36 O2 Sat by Pulse Oximetry 93 L 10/12/21 07:36 - Lab Result Diagrams: 10/11/21 05:20 10/11/21 05:20 Micro Results-Entire Visit: Microbiology 10/10/21 17:05 Blood Culture Gram Stain - Final Blood Not Reportable Blood Culture - Final NO GROWTH 10/10/21 16:55 Blood Culture Gram Stain - Final Blood Not Reportable Blood Culture - Final NO GROWTH - Procedures and Test Procedures and Tests throughout Hospitalization: Therapy Orders & Screens 10/11/21 00:04 PT Screen per Nursing Assess ONCE Comment: Protocol Order Physician Instructions: Greater than 3 points order PT Admission Screenin Reason For Exam: Triggered on Admission Diagnosis: AMS, dementia Open Wound/Cellutlitis/Pressure Ulcers: No Acute Fx/ORIF/Change in wt bearing status: No Severe MUSCULOSKELETAL pain: No ADL Dysfunction: Yes Acute CVA w/Hemiparesis/Hemiplegia: No Decreased Functional Mobility/Strength: Yes Sprain/Strain: No Acute Post-op Mobility Dysfunction: No Total Points: 4 RT Screen per Nursing Assess ONCE Comment: Protocol Order Physician Instructions: Greater than 3 points order RT Admission Screen Reason For Exam: Triggered on Admission Diagnosis: AMS, dementia Diagnosis: AMS, dementia Pneumonia: Yes Home O2: Yes Asthma: No CHF: No Home CPAP/BIPAP: No Home Nebs/MDI: No Total Points: 8 10/11/21 03:09 Oxygen Nasal Cannula 3 lpm Comment: Diagnosis: AMS, dementia 10/11/21 03:10 Respiratory Therapy Assessment DAILY Comment: Diagnosis: AMS, dementia - Discharge Discharge Date: 10/12/21 Disposition: DISCHARGE TO HOSPICE CARE Condition: Stable Prescriptions: Continue Tamsulosin HCl 0.4 mg PO DAILY Tiotropium [place] Inhaler [Spiriva 18 Mcg/Cap Inhaler] 1 puff PO DAILY Simvastatin 5 mg PO HS Gabapentin 300 mg PO TID Aspirin 81 gm Chew [Baby Aspirin 81 mg Chew] 81 mg PO DAILY Amlodipine Besylate 10 tab PO DAILY Finasteride 5 mg [Proscar 5 MG] 5 mg PO DAILY Metformin HCl 500 mg [Glucophage 500 MG] 500 mg PO BIDWMEALS Donepezil HCl 10 mg [Aricept 10 MG] 10 mg PO HS Insulin Glargine [Lantus Insulin] 10 unit SQ HS Acetaminophen 325 mg [Tylenol 325 mg] 325 mg PO Q4HPRN PRN PRN Reason: Pain Ipratropium/Albuterol Sulfate [Iprat-Albut 0.5-3(2.5) mg/3 ml] 1 neb IH Q6HPRN PRN PRN Reason: Shortness Of Breath/Wheezing Ibuprofen 200 mg PO Q6HPRN PRN PRN Reason: Pain Cholecalciferol (Vitamin D3) [Vitamin D3] 1,000 unit PO DAILY Citalopram Hydrobromide [Celexa] 10 mg PO DAILY Furosemide 20 mg [Lasix 20 mg] 20 mg PO DAILY Potassium Chloride [Klor-Con] 20 meq PO DAILY Instructions: Preventing Falls in the Older Adult, Dementia (DC) Additional Instructions: DISCHARGE WITH [facility] Forms: Ambulance Transport Record, Discharge Instructions
== END 2021-10-12 09:40 | disposition hospice, home (50) ==
LOC: ED 16:28 → MED SURG 23:41
PROVIDERS: ADMIT Family Medicine; ATTEND Family Medicine
DX: R41.82 Altered mental status, unspecified (principal); F03.90 Unspecified dementia, unspecified severity, without behavioral disturbance, psychotic disturbance, mood disturbance, and anxiety; I10 Essential (primary) hypertension; J44.9 Chronic obstructive pulmonary disease, unspecified; E11.9 Type 2 diabetes mellitus without complications; Z87.891 Personal history of nicotine dependence; Z79.899 Other long term (current) drug therapy; Z20.828 Contact with and (suspected) exposure to other viral communicable diseases
CPT/HCPCS: 0241U; 36000; 36415; 70450; 71045; 80048; 80053; 80307; 81001; 82140; 82947; 83605; 84484; 85025; 87040; 93005; 93041; 93268; 94760; 99285; G0378; G0480; J2270